=== PATIENT | male | born 1960 | race Caucasian/White ===

== ENCOUNTER → 2019-12-05 09:29 | Outpatient (BNVA) | payer BC, SELFPAY | PROVIDERS: Family Provider Family Medicine; PCP Family Medicine; Visit Provider Otolaryngology | DX: E04.1 Nontoxic single thyroid nodule (principal); E07.9 Disorder of thyroid, unspecified | CPT/HCPCS: 99213; 99214 ==

== ENCOUNTER → 2019-12-23 07:41 | Day surgery (SDC) | payer BC, SELFPAY ==
--- NOTE | 2019-12-23 08:30 | US_ITS ---
WS: [id number] Ultrasound-guided biopsy of left thyroid nodule, 12/23/2019 Clinical Data: THYROID NODULE Comparison: Thyroid ultrasound, 11/18/2019. Findings: The left thyroid nodule was identified. It is of mixed echogenicity. With the usual technique the ski n was cleansed and a 30-gauge needle was used to infiltrate approximately 2 mL of 1% lidocaine. Then 3 25-gauge needles were inserted into the interior of the left thyroid nodule and material was aspira og and given to the laboratory for analysis. There were no complications. US/US biopsy thyroid 62042 Impression: Satisfactory ultrasound-guided biopsy of left thyroid nodule.
== END ==
PROVIDERS: Family Provider Family Medicine; PCP Family Medicine
DX: E04.1 Nontoxic single thyroid nodule (principal); Z79.82 Long term (current) use of aspirin
CPT/HCPCS: 10005; 88173; 88305

== ENCOUNTER → 2019-12-31 09:57 | Outpatient (BNVA) | payer BC, SELFPAY | PROVIDERS: Family Provider Family Medicine; PCP Family Medicine; Visit Provider Otolaryngology | DX: E04.1 Nontoxic single thyroid nodule (principal); I10 Essential (primary) hypertension | CPT/HCPCS: 99214 ==

== ENCOUNTER 2020-01-08 08:46 | Day surgery (SDC) | payer BC, SELFPAY ==
[2020-01-07 12:39] VITALS: BMI 38.9
[2020-01-08] VITALS (16 sets, daily range): BP systolic 114–171; BP diastolic 71–92; PULSE 48–58; RESP 12–20; TEMP 36.1–36.4; O2SAT 94–99
[2020-01-08] MEDS: sodium chloride 0.9% 1,000 ML 30 ML IV (09:15)
--- NOTE | 2020-01-08 09:16 | PM.HPUD ---
H&P update H&P Update: DATE OF SURGERY/PROCEDURE: 01/08/20 DATE H&P PERFORMED: 12/31/19 H&P UPDATE INFORMATION: H&P completed within last 30 days and No changes to prior documentation PREOP DIAGNOSIS: Left thyroid nodule PLANNED PROCEDURE: Operation Date: 01/08/20 10:30 Proposed Procedures p Hemithyroidectomy Left Thyroid Lobectomy 00775 E04.1(Left) - Fam Cook MD Full H&P Medications/Allergies: Current Medications: Current Medications Generic Name Dose Route Start Last Admin Trade Name Freq PRN Reason Stop Dose Admin Sodium Chloride 1,000 mls @ 30 ml s/hr 01/08/20 09:00 01/08/20 09:15 Sodium Chloride 0.9% IV 01/09/20 08:59 30 mls/hr .Q24H JEREMIAS Administration Perinent History: Medical/Surgical History: Medical History (Updated 12/31/19 @ 11:56 by Fam Cook MD) Hypertension (Acute) Hypertension (Acute) Family History: Family History (Updated 12/04/19 @ 15:30 by Rika Rose LPN) Father Cancer Social History: Social History Smoking and tobacco status: never smoked Alcohol intake: current Alcohol intake frequency: holidays/special occasions only History of recent travel: No
--- NOTE | 2020-01-08 09:19 | P.ANESASSM_ITS ---
Pre-Anesthetic Assessment Pre-Anesthetic Assessment: Height/Weight: Height 1.85 m Weight 133.81 kg Temp Pulse Resp BP Pulse Ox 97.6 F 58 L 18 171/92 96 01/08/20 08:56 01/08/20 08:56 01/08/20 08:56 01/08/20 08:56 01/08/20 08:56 Preop Diagnosis: Left thyroid nodule Proposed Procedure: Operation Date: 01/08/20 10:30 Proposed Procedures p Hemithyroidectomy Left Thyroid Lobectomy 06798 E04.1(Left) - Fam Cook MD Last intake: Intake Last Liquid Date 01/08/20 Last Liquid Time 05:10 Last Solid Date 01/07/20 Last Solid Time 23:20 Exam: Pre-Anes Outpt Exam: alert, oriented x 3, clear to auscultation bilaterally and regular rate & rhythm CV/HEM: CV/HEM: Afib, Arrythmia and HTN Comments: ablation ' rx'd x 30y stress test negative GI: GI: GERD Comments: controlled with ranitidine Anesthetic Plan: ASA status: 3 Anesthesia: General Meds/Allergies Current Medications: Current Medications Generic Name Dose Route Start Last Admin Trade Name Freq PRN Reason Stop Dose Admin Sodium Chloride 1,000 mls @ 30 ml s/hr 01/08/20 09:00 01/08/20 09:15 Sodium Chloride 0.9% IV 01/09/20 08:59 30 mls/hr .Q24H JEREMIAS Administration PFSH Anesthesia PFSH: Medical History (Updated 12/31/19 @ 11:56 by Fam Cook MD) Hypertension Hypertension Social History Smoking and tobacco status: never smoked Alcohol intake: current Alcohol intake frequency: holidays/special occasions on ly History of recent travel: No Data Anesthesia Cardiac Studies: No Data to Display
[2020-01-08] MEDS: neomycin-poly-bacitracin oint 28 gm 1 APPLIC TOPICAL (10:05)
--- NOTE | 2020-01-08 10:56 | P.OP_ITS ---
Operative Report Date of procedure: January 08, 2020 Pre-op Diagnosis: Left thyroid nodule Post-op diagnosis: same Post-op Findings: Left thyroid nodule Procedure Done: Left thyroid lobectomy Specimens removed/disposition: Left thyroid lobectomy Surgeon: Fam Cook Anesthesia: General Complications: None Condition: stable Disposition: PACU Brief History: Duke is a 59-year-old male with a left thyroid mass. Fine- needle aspiration was concerning for's sampling area and after given the options informed consent was obtained to proceed with left thyroid lobectomy Procedure: The patient was taken to the operating room and under satisfactory general endotracheal anesthesia the neck was prepped draped and injected. A 1.5 cm incision was made in a relaxed skin tension line. Dissection was carried through the anterior layer of deep cervical fascia and the strap musculature was retracted laterally identifying the left thyroid lobe. Dissection was carried superiorly and inferiorly identifying the superior and inferior parathyroid. The middle thyroid vein and superior thyroid artery was ligated with the harmonic scalpel. The gland was then reflected into the wound and removed. Hemostasis was obtained with combination of harmonic and bipolar cautery. Karri was placed in the wound bed and the wound was closed in layered interrupted fashion with 5-0 subcuticular Vicryl and 4-0 chromic deep suture. Of note the recurrent laryngeal nerve was identified and preserved. Neck dressing was applied the patient was allowed to awaken and taken to recovery room where he was observed. During the observation time postoperative care instructions and counseling including detailed written and verbal instruction given to the patient and his . Once all parties verbalized understanding of all instructions and once the patient met discharge criteria he was discharged in satisfactory and stable condition.
[2020-01-08] MEDS: fentaNYL 50 mcg/mL INJ 2mL IVP ×2 (11:21→11:26)
[2020-01-08] MEDS: TRAMadol 50 mg Tablet PO (12:48)
== END 2020-01-08 13:30 | disposition home or self-care (01) ==
PROVIDERS: Family Provider Family Medicine; PCP Family Medicine; Visit Provider Otolaryngology
PROC: (CPT 60220; principal; 2020-01-08 09:50)
DX: E04.1 Nontoxic single thyroid nodule (principal); I48.91 Unspecified atrial fibrillation; I10 Essential (primary) hypertension; Z79.82 Long term (current) use of aspirin
CPT/HCPCS: 60220; 12345; 88307; J1100; J2001; J2405; J2704; J2710; J3010; J3490; J7030

== ENCOUNTER → 2020-01-09 11:29 | Outpatient (BNVA) | payer BC, SELFPAY | PROVIDERS: Family Provider Family Medicine; PCP Family Medicine; Visit Provider Otolaryngology | DX: Z48.89 Encounter for other specified surgical aftercare (principal) | CPT/HCPCS: 99024 ==

== ENCOUNTER → 2020-01-13 08:40 | Outpatient (BNVA) | payer BC, SELFPAY | PROVIDERS: Family Provider Family Medicine; PCP Family Medicine; Visit Provider Otolaryngology | DX: E04.1 Nontoxic single thyroid nodule (principal); B02.9 Zoster without complications; R05 Cough | CPT/HCPCS: 99024; 99214 ==

== ENCOUNTER → 2020-01-19 10:36 | Outpatient (BNVA) | payer BC, SELFPAY | PROVIDERS: Family Provider Family Medicine; PCP Family Medicine; Visit Provider Otolaryngology | DX: E04.1 Nontoxic single thyroid nodule (principal); B02.9 Zoster without complications; R05 Cough | CPT/HCPCS: 99024; 99214 ==

== ENCOUNTER → 2020-01-27 09:16 | Outpatient (BNVA) | payer BC, SELFPAY | PROVIDERS: Family Provider Family Medicine; PCP Family Medicine; Visit Provider Otolaryngology | DX: E04.1 Nontoxic single thyroid nodule (principal); B02.9 Zoster without complications; R05 Cough | CPT/HCPCS: 99024; 99214 ==

== ENCOUNTER → 2020-08-14 10:55 | Outpatient (BNVA) | payer BC, SELFPAY | PROVIDERS: Family Provider Family Medicine; PCP Family Medicine; Visit Provider Nurse Practitioner Family | DX: Z20.828 Contact with and (suspected) exposure to other viral communicable diseases (principal) | CPT/HCPCS: 87635 ==

== ENCOUNTER → 2020-11-23 15:27 | Outpatient (BNVA) | payer BC, SELFPAY | PROVIDERS: Family Provider Family Medicine; PCP Family Medicine; Visit Provider Urology | DX: R35.0 Frequency of micturition (principal); Z12.5 Encounter for screening for malignant neoplasm of prostate; R35.8 Other polyuria; Z80.42 Family history of malignant neoplasm of prostate | CPT/HCPCS: 81003; G0103 ==

== ENCOUNTER → 2021-11-22 16:08 | Outpatient (BNVA) | payer BC, SELFPAY | PROVIDERS: Family Provider Family Medicine; PCP Family Medicine; Visit Provider Urology | DX: R35.89 Other polyuria (principal); Z12.5 Encounter for screening for malignant neoplasm of prostate | CPT/HCPCS: 81003; G0103 ==

== ENCOUNTER 2022-01-02 15:45 | Outpatient (CLI) | payer BC, SELFPAY ==
--- NOTE | 2022-01-02 15:51 | XR_ITS ---
WS: [id number] XR foot LT 2V [id number] REASON FOR EXAM: FOOT PAIN LEFT, PLANTAR FASCITIS FINDINGS: No fracture or focal bone lesion. Within the left forefoot there is mild joint space narrowing with subchondral sclerosis and small mar ginal osteophytes in the DIP and PIP joints of the third through the fifth toes. Mild valgus deformity at the first metacarpal phalangeal joint. Joint spaces and bony structure of the midfoot unremarkable. Normal subtalar joint. Small/moderate anterior plantar enthesophyte from the calcaneus. XR/XR foot LT 2V IMPRESSION: Mild osteoarthritis of the left foot. Calcaneal enthesophyte as above.
== END 2022-01-02 15:46 | disposition home or self-care (01) ==
LOC: RAD 15:49
PROVIDERS: PCP Family Medicine; Visit Provider Family Medicine
DX: M72.2 Plantar fascial fibromatosis (principal); M19.072 Primary osteoarthritis, left ankle and foot; M25.775 Osteophyte, left foot
CPT/HCPCS: 73620

== ENCOUNTER 2022-04-28 00:25 | Emergency (ER) | payer BC, SELFPAY ==
[2022-04-28] VITALS (9 sets, daily range): BP systolic 145–192; BP diastolic 80–100; PULSE 50–90; RESP 14–26; TEMP 36.7; O2SAT 90–97; BMI 38.9
--- NOTE | 2022-04-28 00:48 | CTR_ITS ---
PROCEDURE INFORMATION: Exam: CT Abdomen And Pelvis Without Contrast Exam date and time: 04/28/2022 1:25 AM Age: 61 years old Clinical indication: Abdominal pain; Prior surgery; Surgery type: Gb; Patient HX: C/O left flank/llq and left testicle pain. ; Additional info: Left flank and testicle pain TECHNIQUE: Imaging protocol: Computed tomography of the abdomen and pelvis without contrast. Radiation optimization: All CT scans at this facility use at least one of these dose optimization techniques: automated exposure control; mA and/or kV adjustment per patient size (includes targeted exams where dose is matched to clinical indication); or iterative reconstruction. COMPARISON: US gall bladder [id number] 10/23/2019 7:27 PM RADIATION DOSE METRICS: Total DLP (mGy-cm): 1650.07 FINDINGS: Heart: Severe calcified coronary artery disease. Liver: Calcified hepatic granulomas. Gallbladder and bile ducts: Surgical clips in the gallbladder fossa consistent with cholecystectomy. Pancreas: Normal. No ductal dilation. Spleen: Calcified splenic granulomas. One or more accessory splenules. Adrenal glands: Normal. No mass. Kidneys and ureters: One or more nonobstructing left renal calyceal stones. 4 mm left ureteral stone at the level of L4 with minimal hydronephrosis. Stomach and bowel: Moderate descending and/or sigmoid colon diverticulosis without diverticulitis. Appendix: Normal appendix. Intraperitoneal space: Unremarkable. No free air. No significant fluid collection. Vasculature: Unremarkable. No abdominal aortic aneurysm. Lymph nodes: Unremarkable. No enlarged lymph nodes. Urinary bladder: Unremarkable as visualized. Reproductive: Nonspecific prostate calcifications. Bones/joints: Unremarkable. No acute fracture. Soft tissues: Unremarkable. CT/CT kidney stone [id number] IMPRESSION: 1. Severe calcified coronary artery disease. 2. 4 mm left ureteral stone at the level of L4 with minimal hydronephrosis.
--- NOTE | 2022-04-28 00:51 | W.ED.MALEGU ---
HPI - Male Genitourinary General: Chief complaint: Urogenital-Male Stated complaint: L testicle pain, goes to back Time Seen by Provider: 04/28/22 00:48 History of Present Illness: 61-year-old male patient comes in with left testicle pain radiating up into the flank. Patient reports he thought at first he had strained his groin after pulling a calf. Patient has a history of kidney stones. Patient appears in moderate pain. Patient is very restless and moving which does not seem to exacerbate pain. Associated symptoms: Reports nausea; Deny vomiting Review of Systems General: Reports: 10 or more systems reviewed and unremarkable except in HPI and below Const: Denies: fever(s) Card: Denies: chest pain Resp: Denies: dyspnea GI: Reports: abdominal pain and nausea; Denies: vomiting : Reports: flank pain, urinary frequency and urinary urgency PFSH ED PFSH: Medical History Cough FH: prostate cancer Hypertension Hypertension Shingles Urinary frequency Surgical History History of thyroid surgery Family History Father , at age 74 Cancer prostate with metastasis Mother Multiple myeloma Social History Smoking and tobacco status: never smoked Alcohol intake: current Alcohol intake frequency: holidays/special occasions only Marital status: Current occupational status: employed History of recent travel: No Physical Exam Const: COMMON NORMALS: alert HENMT: COMMON NORMALS: normocephalic HEAD & SCALP: normocephalic Neck/C-Spine: COMMON NORMALS: full ROM Resp: COMMON NORMALS: normal respiratory effort and clear to auscultation bilaterally AUSCULTATION: clear to auscultation bilaterally Cardio: COMMON NORMALS: regular rate and regular rhythm RATE: regular rate RHYTHM: regular rhythm : BLADDER/KIDNEY EXAM: Yes CVA tenderness on the left PENIS: normal penis, circumcised and not erythematous SCROTUM: Yes testes descended bilaterally, No erythematous and No edematous Back/Pelvis: GENERAL BACK: Yes CVA tenderness Neuro: SENSORIUM/ORIENTATION: Yes alert Skin: COMMON NORMALS: no rashes or lesions noted GENERAL SKIN EXAM: no rashes or lesions noted Course Vital Signs: Vital signs: Vital Signs Temperature 98.1 F 04/28/22 00:36 Pulse Rate 51 L 04/28/22 02:23 Respiratory Rate 14 04/28/22 02:23 Blood Pressure 145/94 04/28/22 02:23 Pulse Oximetry 91 04/28/22 02:23 MDM - Male Medical Decision Making Patient comes in with left testicular pain radiating up into the left groin. On exam patient is very restless and appears in moderate pain. Abdomen soft with some tenderness in the left quadrant. Bowel sounds are present. Skin is warm and dry. No obvious erythema or abnormal swelling is to the groin. Differential diagnosis includes but not limited to incarcerated inguinal hernia, UTI, renal calculi. CT of the abdomen pelvis noted a 4 mm mid ureter stone with minimal hydronephrosis and no stranding. CBC had a white count of 9000, CMP had a creatinine of 1.4 which appears to be near patient's baseline of 1.2. Patient was brought into comfort with the 50 mg of Toradol, 50 mg of fentanyl, and 4 mg of ondansetron. Discussed with pain treatment and recommendations for follow-up with Dr. Rosenberg. Patient reported understanding and agreed to plan. Lab Data : 04/28/22 01:11 04/28/22 01:11 Radiology Impressions Abdomen/Pelvis CT 04/28/22 00:48 IMPRESSION: 1. Severe calcified coronary artery disease. 2. 4 mm left ureteral stone at the level of L4 with minimal hydronephrosis. Laboratory Results WBC 9.0 10^3/uL (4.0-10.0) 04/28/22 01:11 RBC 5.76 10^6/uL (4.1-5.3) H 04/28/22 01:11 Hgb 17.1 g/dL (11.7-16.6) H 04/28/22 01:11 Hct 50.6 % (42.0-52.0) 04/28/22 01:11 MCV 87.8 fl (80-94) 04/28/22 01:11 MCH 29.7 pg (28.0-34.0) 04/28/22 01:11 MCHC 33.8 g/dL (30.0-36.0) 04/28/22 01:11 RDW 13.7 % (12.1-15.1) 04/28/22 01:11 Plt Count 212 10^3/cmm (130-400) 04/28/22 01:11 MPV 11.1 fL (7.4-10.4) H 04/28/22 01:11 Neut % (Auto) 45.4 % 04/28/22 01:11 Lymph % (Auto) 44.0 % 04/28/22 01:11 [place] % (Auto) 7.9 % 04/28/22 01:11 Eos % (Auto) 1.8 % 04/28/22 01:11 Baso % (Auto) 0.6 % 04/28/22 01:11 Neut # (Auto) 4.07 10^3/uL (1.8-7.7) 04/28/22 01:11 Lymph # (Auto) 3.9 10^3/uL (0.8-4.8) 04/28/22 01:11 [place] # (Auto) 0.7 10^3/uL (0.2-0.9) 04/28/22 01:11 Eos # (Auto) 0.2 10^3/uL (0.0-0.8) 04/28/22 01:11 Baso # (Auto) 0.1 10^3/uL (0.0-0.1) 04/28/22 01:11 Nucleated RBC % (auto) 0 % 04/28/22 01:11 Nucleated RBCs # 0.0 /100WBC 04/28/22 01:11 Sodium 139 mmol/L (136-145) 04/28/22 01:11 Potassium 4.1 mmol/L (3.5-5.1) 04/28/22 01:11 Chloride 104 mmol/L (98-107) 04/28/22 01:11 Carbon Dioxide 23 mmol/L (22-29) 04/28/22 01:11 Anion Gap 16.1 (5-19) 04/28/22 01:11 BUN 25 mg/dL (8-23) H 04/28/22 01:11 Creatinine 1.4 mg/dL (0.7-1.2) H 04/28/22 01:11 GFR Calculation 51.5 mL/min (90-130) L 04/28/22 01:11 Glucose 127 mg/dL (65-115) H 04/28/22 01:11 Calculated Osmolality 294 mOsm/kg (285-295) 04/28/22 01:11 Calcium 9.2 mg/dL (8.5-10.5) 04/28/22 01:11 Total Bilirubin 0.4 mg/dL (0.15-1.2) 04/28/22 01:11 AST 26 U/L (0-40) 04/28/22 01:11 ALT 45 U/L (0-41) H 04/28/22 01:11 Alkaline Phosphatase 81 IU/L (40-130) 04/28/22 01:11 Total Protein 7.0 g/dL (6.6-8.7) 04/28/22 01:11 Albumin 4.4 g/dL (3.5-5.2) 04/28/22 01:11 Globulin 2.6 g/dL (1.3-4.6) 04/28/22 01:11 Lipase 30 U/L (13-60) 04/28/22 01:11 Discharge Plan Discharge Patient Disposition: Home Clinical Impression: Left ureteral calculus Condition: Stable Prescriptions: New hydrocodone-acetaminophen 5-325 mg tablet 1 tab PO Q6H PRN (Reason: pain (scale score 7-10)) Qty: 20 0RF tamsulosin 0.4 mg capsule 0.4 mg PO DAILY Qty: 14 0RF ondansetron 4 mg tablet,disintegrating 4 mg PO Q8H PRN (Reason: nausea and vomiting) Qty: 10 0RF No Action atenolol 25 mg tablet 25 mg PO Q24H 0RF flecainide 50 mg tablet 50 mg PO Q12H 0RF losartan 50 mg tablet 50 mg PO DAILY 0RF aspirin 81 mg tablet,delayed release (DR/EC) 81 mg PO DAILY 0RF potassium chloride [Klor-Con M20] 20 mEq tablet,ER particles/crystals 20 meq PO DAILY 0RF Discharge Orders: Discharge ED (Routine); Ordered 04/28/22 Ordered By: Roberto Bond Referrals: Gareth Shaikh MD [Primary Care Provider] - Discharge Diet: Usual diet Discharge Activity: Increase activity as tolerated Patient Instructions: Kidney Stones (ED), How to Strain Your Urine (ED), Opioid Safety Activity Restrictions/Additional Instructions: Strain all urine. Continue with routine medications. You may use acetaminophen or ibuprofen for pain. Use hydrocodone for severe pain. Use ondansetron as needed for nausea or vomiting. Use tamsulosin to help dilate the ureter to pass the stone. Case management will help with follow-up appointment for urology for further evaluation and treatment. Return to the ER for uncontrolled pain, high fever, or new concerns. Coding Level of Care Code ED Development Coordinator for Lilianag Fwd Exam Detailed
[2022-04-28] MEDS: ondansetron 2 mg/ML SDV 2 mL 4 MG IVP (01:07)
[2022-04-28] MEDS: ketorolac 30 mg/mL INJ 15 MG IVP (01:07)
[2022-04-28] MEDS: fentaNYL 50 mcg/mL INJ 2mL IVP (01:08)
[2022-04-28 01:28] LABS: Basophils # 0.1 10^3/uL (0.0-0.1); Basophils % 0.6 %; Eosinophils # 0.2 10^3/uL (0.0-0.8); Eosinophils % 1.8 %; Hematocrit 50.6 % (42.0-52.0); Hemoglobin 17.1 g/dL (11.7-16.6); Lymphocytes # 3.9 10^3/uL (0.8-4.8); Mean Corpuscular HGB Conc 33.8 g/dL (30.0-36.0); Mean Corpuscular Hemoglobin 29.7 pg (28.0-34.0); Mean Corpuscular Volume 87.8 fl (80-94); Mean Platelet Volume 11.1 fL (7.4-10.4); Monocytes # 0.7 10^3/uL (0.2-0.9); Monocytes % 7.9 %; Neutrophils # 4.07 10^3/uL (1.8-7.7); Neutrophils % 45.4 %; Nucleated Red Blood Cells % 0 %; Platelet Count 212 10^3/cmm (130-400); Red Blood Count 5.76 10^6/uL (4.1-5.3); Red Cell Distribution Width 13.7 % (12.1-15.1)
[2022-04-28 01:51] LABS: Alanine Aminotransferase 45 U/L (0-41); Albumin Level 4.4 g/dL (3.5-5.2); Alkaline Phosphatase 81 IU/L (40-130); Aspartate Amino Transferase 26 U/L (0-40); Blood Urea Nitrogen 25 mg/dL (8-23); Calcium 9.2 mg/dL (8.5-10.5); Carbon Dioxide 23 mmol/L (22-29); Chloride 104 mmol/L (98-107); Globulin 2.6 g/dL (1.3-4.6); Glomerular Filtration Rate 51.5 mL/min (90-130); Glucose 127 mg/dL (65-115); Lipase 30 U/L (13-60); Osmolality Calculated 294 mOsm/kg (285-295); Sodium 139 mmol/L (136-145); Total Bilirubin 0.4 mg/dL (0.15-1.2)
[2022-04-28 01:57] LABS: Anion Gap 16.1 (5-19); Potassium 4.1 mmol/L (3.5-5.1)
--- NOTE | 2022-04-28 04:00 | PC.NURSE ---
Patient sent home with #2 tabs of norco per provider. Witnessed by Leticia Paul rn.
--- NOTE | 2022-04-28 08:40 | DCPLANNER ---
Addendum entered by Melisa Nixon 05/03/22 14:44: Patient had a follow up appointment for patient with Dr. Rosenberg on 05.01.22 - patient did attend appointment. Original Note: tax compliance manager had message to schedule a follow up appointment for patient with urology. tax compliance manager sent patients information to the front office staff at urology. Patients information will be printed and reviewed. Clinic will call patient with appointment information.
== END 2022-04-28 03:55 | disposition home or self-care (01) ==
PROVIDERS: Emergency Provider Nurse Practitioner Family; PCP Family Medicine
DX: N20.1 Calculus of ureter (principal); Z87.442 Personal history of urinary calculi; Z85.46 Personal history of malignant neoplasm of prostate
CPT/HCPCS: 74176; 80053; 83690; 85025; 96374; 96375; 96376; 99284; J1885; J2405; J3010

== ENCOUNTER 2022-05-01 13:18 | Observation (INO) | payer BC, SELFPAY ==
--- NOTE | 2022-05-01 11:15 | XRR_ITS ---
PROCEDURE INFORMATION: Exam: XR Abdomen Exam date and time: 05/01/2022 11:27 AM Age: 61 years old Clinical indication: Condition or disease; Kidney or ureter condition; Calculus (stone) in kidney; Prior surgery; Surgery type: Gb; Additional info: Kidney stone, kub @ ozh 05/01/22 @ 1100 appointment to follow TECHNIQUE: Imaging protocol: XR of the abdomen. Views: Frontal supine view of the abdomen. 1 View. COMPARISON: CT Abdomen/Pelvis Renal [id number] 04/29/2022 7:50 PM FINDINGS: Gastrointestinal tract: No abnormally dilated air-filled bowel loops identified. Intraperitoneal space: Surgical clips in the right upper quadrant noted. Organs: Multiple irregular calcifications in the left upper quadrant within the spleen as noted on prior CT. Multiple calcified granulomas noted in the liver. 5 mm calcification noted overlying the expected location of the upper pole the left kidney corresponding to previously noted nephrolithiasis. Previously CT noted left-sided ureteral stone not well visualized. Bones/joints: Unremarkable. XR/XR KUB [id number] IMPRESSION: 1. 5 mm calcification noted overlying the expected location of the upper pole the left kidney corresponding to previously noted nephrolithiasis. 2. Previously CT noted left-sided ureteral stone not well visualized.
[2022-05-01 13:25] VITALS: BMI 38.9
[2022-05-01 13:52] VITALS: BP 177/77; PULSE 58; RESP 18; TEMP 36.3; O2SAT 96
[2022-05-01] MEDS: ketorolac 30 mg/mL INJ 15 MG IVP (14:15)
[2022-05-01] MEDS: D5-NS 0.45% + KCL 20 mEq 20 MEQ/1,000 ML BAG 150 MEQ IV ×2 (14:30→20:27)
[2022-05-01 15:09] LABS: Basophils % 0.3 %; Eosinophils # 0.1 10^3/uL (0.0-0.8); Eosinophils % 1.1 %; Hematocrit 47.2 % (42.0-52.0); Hemoglobin 15.3 g/dL (11.7-16.6); Lymphocytes # 1.6 10^3/uL (0.8-4.8); Lymphocytes % 25.4 %; Mean Corpuscular HGB Conc 32.4 g/dL (30.0-36.0); Mean Corpuscular Hemoglobin 29.5 pg (28.0-34.0); Mean Corpuscular Volume 91.1 fl (80-94); Mean Platelet Volume 11.3 fL (7.4-10.4); Monocytes # 0.6 10^3/uL (0.2-0.9); Monocytes % 9.4 %; Neutrophils # 3.96 10^3/uL (1.8-7.7); Neutrophils % 63.5 %; Nucleated Red Blood Cells % 0 %; Platelet Count 147 10^3/cmm (130-400); Red Blood Count 5.18 10^6/uL (4.1-5.3); Red Cell Distribution Width 13.2 % (12.1-15.1); White Blood Count 6.3 10^3/uL (4.0-10.0)
[2022-05-01 15:41] LABS: Alanine Aminotransferase 33 U/L (0-41); Albumin Level 3.8 g/dL (3.5-5.2); Alkaline Phosphatase 74 IU/L (40-130); Anion Gap 15.2 (5-19); Aspartate Amino Transferase 22 U/L (0-40); Blood Urea Nitrogen 30 mg/dL (8-23); Calcium 9.3 mg/dL (8.5-10.5); Carbon Dioxide 25 mmol/L (22-29); Chloride 102 mmol/L (98-107); Globulin 3.1 g/dL (1.3-4.6); Glomerular Filtration Rate 36.2 mL/min (90-130); Glucose 111 mg/dL (65-115); Osmolality Calculated 293 mOsm/kg (285-295); Potassium 4.2 mmol/L (3.5-5.1); Sodium 138 mmol/L (136-145); Total Bilirubin 1.1 mg/dL (0.15-1.2); Total Protein 6.9 g/dL (6.6-8.7)
[2022-05-01 16:00] VITALS: BP 166/91; PULSE 57; RESP 16; TEMP 36.6; O2SAT 94
[2022-05-01] MEDS: docusate sodium 100 mg Capsule PO (17:00)
--- NOTE | 2022-05-01 18:53 | P.MISC_ITS ---
Miscellaneous Note Purpose of Documentation: Update Note: Admitted through the clinic today for refractory left renal colic secondary to left mid ureteral stone. Since admission he has been aggressively managed with parenteral medication with significant improvement in baseline symptoms. Has not passed the stone. No fever or chills. Creatinine was improved at 1.9 down from 2.0 on 04/29/2022. Will plan for KUB in the morning, clear liquids tonight, serial BMPs, co nsideration for surgical intervention tomorrow as time available if no stone passage.
[2022-05-01 20:00] VITALS: BP 166/96; PULSE 50; RESP 17; TEMP 35.9; O2SAT 95
[2022-05-02] VITALS (17 sets, daily range): BP systolic 118–168; BP diastolic 70–99; PULSE 16–57; RESP 12–20; TEMP 36.2–36.7; O2SAT 92–98
--- NOTE | 2022-05-02 | SCC_ITS ---
Procedure done: 1. Cystoscopy, left retrograde ureteropyelogram 2. Left ureteroscopy, laser, stent (7 [place] by 30 cm double-pigtail without string) 62.3 seconds of fluoroscopic guidance, for a cumulative dose of 27.91 mGy, was provided to Dr. Rosenberg by the radiology department. C-arm images of the abdomen were saved for the patient's permanent record. [facility]
[2022-05-02] MEDS: ketorolac 30 mg/mL INJ 15 MG IVP ×3 (01:02→14:35)
[2022-05-02] MEDS: D5-NS 0.45% + KCL 20 mEq 20 MEQ/1,000 ML BAG 150 MEQ IV ×3 (03:09→20:36)
[2022-05-02] MEDS: HYDROmorphone 1 mg/mL INJ 1 mL 0.5 MG IVP (03:10)
--- NOTE | 2022-05-02 06:00 | XRR_ITS ---
PROCEDURE INFORMATION: Exam: XR Abdomen Exam date and time: 05/02/2022 6:13 AM Age: 62 years old Clinical indication: Other: Ureteral calculus; Additional info: Left ureteral calculus TECHNIQUE: Imaging protocol: XR of the abdomen. Views: Frontal supine view of the abdomen. 1 View. COMPARISON: 1. CR XR KUB [id number] 05/01/2022 11:[address] Abdomen/Pelvis Renal [id number] 04/29/2022 7:50 PM FINDINGS: Gastrointestinal tract: No abnormally dilated air-filled bowel loops identified in the field of view. Intraperitoneal space: 5 mm calcification noted in the right upper abdomen possibly a overlying the expected region of the right kidney. No additional radiographically evident ureteral stones identified. Previously CT noted left-sided renal and ureteral stones not radiographically evident. Bones/joints: Unremarkable. XR/XR KUB [id number] IMPRESSION: 1. Previously noted left-sided renal and ureteral stones not radiographically evident. 2. Renal stone identified.
[2022-05-02 06:37] LABS: Anion Gap 14.1 (5-19); Blood Urea Nitrogen 24 mg/dL (8-23); Carbon Dioxide 25 mmol/L (22-29); Chloride 102 mmol/L (98-107); Glucose 112 mg/dL (65-115); Osmolality Calculated 289 mOsm/kg (285-295); Potassium 4.1 mmol/L (3.5-5.1); Sodium 137 mmol/L (136-145)
--- NOTE | 2022-05-02 07:15 | PC.NURSE ---
Bedside report received from Anastasiya RUDOLPH at this time.
--- NOTE | 2022-05-02 07:51 | PM.PN ---
Subjective Subjective: Hospital day #2. Still with intermittent severe left ureteral colic. Has failed to pass the stone. Still controlling his pain with appropriate doses of narcotics and Toradol. Creatinine has improved down to 1.4. No systemic infection type symptoms. Reviewed options which would include continued inpatient or outpatient conservative management versus intervention based on the refractory nature of his symptoms he is chosen the latter. We will plan on endoscopic treatment of the stone. Informed consent was obtained for cystoscopy, LEFT: Retrograde, ureteroscopy, laser, stent after detailed explanation of the procedure, benefits, risks, alternative, possible staging with stent placement first and delayed rescope if poor access. Also reviewed the rare chance of inability to access in a retrograde fashion at all with requirement for interventional radiology and percutaneous nephrostomy tube and possible antegrade stent placement. All of this was explained and he asked appropriate questions and seemed content with my answers. Plan for procedure this evening when time available. Cannot clearly identify the stone on today's KUB Decision for surgery today. Medications: Reviewed: Yes Vitals/I&O/Wt Last Vital Signs Temp 97.9 F 05/02/22 04:00 Pulse 51 L 05/02/22 04:00 Resp 16 05/02/22 04:00 BP 162/93 05/02/22 04:00 Pulse Ox 94 05/02/22 04:00 05/01/22 05/02/22 05/02/22 22:59 06:59 14:59 Intake Total 892.5 / 892.5 1000 / 1892.5 Output Total 250 / 250 500 / 750 Balance 642.5 / 642.5 500 / 1142.5 Weight last 48 hrs Weight 295 lb Physical Exam Narrative: Alert oriented still looks uncomfortable. HEENT atraumatic normocephalic Neck good range of motion Respiratory no labored respiration no audible wheezes Abdomen nondistended. starch mangle tender Extremities good range of motion Psychiatric with normal mentation good cognitive function. Neurologic no focal defects. No confusion. No memory loss. Hematologic lymphatic no abnormal bruising or bleeding. Data : 05/01/22 14:40 05/02/22 05:50 A&P Assessment and plan (1) Left ureteral calculus: Status: Acute (2) Renal colic on left side: Status: Acute (3) Hypertension: Status: Acute Attestations Medical Necessity Statement*: Requires intervention today for refractory renal colicky symptoms related to left mid ureteral stone. Coding Level of Care Code Acute Treasury Specialist for Chg Fwd Diagnoses Left ureteral calculus N20.1 Renal colic on left side N23 Hypertension I10
--- NOTE | 2022-05-02 08:15 | ECG_ITS ---
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 Measurements Intervals [place] Rate: 57 P: 22 ME: 191 QRS: -16 QRSD: 96 T: 5 QT: 392 QTc: 382 Interpretive Statements SINUS BRADYCARDIA Compared to ECG 10/23/2019 20:13:15 No significant changes Electronically Signed On 05-02-2022 17:59:17 CDT by Avelino Harmon M.D. [email or web address] city of [place]-the [email or web address] citizens hospitalDarma [id number]
[2022-05-02] MEDS: HYDROcodone-acetaminophen 5-325 mg Tablet 1 TAB PO ×3 (09:15→21:39)
[2022-05-02] MEDS: cyclobenzaprine 10 mg Tablet PO ×2 (09:15→14:32)
[2022-05-02] MEDS: tamsulosin 0.4 mg Capsule PO (09:16)
[2022-05-02] MEDS: losartan 50 mg Tablet PO (09:16)
[2022-05-02] MEDS: potassium chloride ER 20 mEq Tablet PO (09:16)
[2022-05-02] MEDS: aspirin 81 mg EC Tablet PO (09:16)
[2022-05-02] MEDS: atenolol 50 mg Tablet 25 MG PO (09:16)
[2022-05-02] MEDS: flecainide 100 mg Tablet 50 MG PO ×2 (09:17→21:47)
[2022-05-02] MEDS: docusate sodium 100 mg Capsule PO (09:17)
--- NOTE | 2022-05-02 10:43 | PC.CHAP ---
Pastoral Care Encounter/Spiritual Assessment Type of Contact [] Declined lockstitch machine operator visit [] Patient/Family/Request visit [] Outpatient visit [] Follow-up visit [] Physician referral [] Code/Alert x[x] Routine visit [] Staff referral [] Actively dying [] Patient sleeping [] Family support [] [] Out of room [] Palliative care [] [] Receiving care in room [] Pre-surgical visit [] Trauma [] Long length of stay [] ICU visit [] Other: Relational/Emotional Strength [x] Patient feels connected with others/family/visitors/staff [] Distress [] Loneliness/isolation [] Abandonment Spirituality of Patient []x Person of [place] [x] Attends Baptism of their [place] [x] Believes in Prayer [] Reads Bible or Judaism materials [] There are Spiritual issues to be addressed Day Habilitation Supervisor Interventions x [x] Prayer [] Active listening x[x] Non-anxious presence [] Spiritual/emotional support [] Crisis/trauma care [] Spiritual counseling [] Bereavement support [] Provided bereavement packet [] Provided Bible/devotional materials [] Provided toy/stuffed animal, coloring book to patient or family member [] Provided Communion [] Anointing/[place] [] Salvation [x] Completed spiritual assessment [] Other: Impact on Illness or Injury [] Angry [] Fearful [] Anxious [] Often cries [] Exhaustion [] Unable to work [] Unable to attend nondenominational [] Unable to walk/stand [] Unable to read [] Unable to drive [] Unable to eat/drink [] Unable to sleep [] Unable to be with family [] Patient intubated [] Other: Summary Time spent with patient 10min
--- NOTE | 2022-05-02 13:30 | P.ANESASSM_ITS ---
Pre-Anesthetic Assessment Height/Weight: Height 1.85 m Weight 133.81 kg Temp Pulse Resp BP Pulse Ox 98.1 F 16 L 16 149/92 95 05/02/22 11:53 05/02/22 11:53 05/02/22 11:53 05/02/22 11:53 05/02/22 11:53 Preop Diagnosis: Ureteral stone Operation Date: 05/02/22 16:30 Proposed Procedures p Cystoscopy(Not Applicable) - Lg Rosenberg MD s Retrograde Pyelogram(Left) - Lg Rosenberg MD s Laser Lithotripsy(Left) - Lg Rosenberg MD s Ureteral Stent Placement(Left) - Lg Rosenberg MD Familial anesthetic complications: none Was Beta Radha taken within 24 hours: Yes Was Clonidine taken within 24 hours: N/A Airway Submandibular: within normal limits Cervical ROM: within normal limits Mallampati: Class III Dentition: full Pulmonary None reported CV/HEM Atrial Fibrillation and Hypertension METS > 4 Ureteral stone Prostate cancer hx Polyuria Hepatic None reported GI Gastroesophageal Reflux Disease Metabolic Thyroid Disease (s/p thyroid resection for benign tissue ) Musc/skel Plantar fasciitis Anesthetic Plan ASA status: 3 Anesthesia: Anesthesia Evaluation and General Other: We discussed risk and benefits of general anesthesia including PONV, sore throat (sometimes severe), corneal abrasion, positioning and peripheral nerve injuries, life threatening allergic reaction, post operative ICU admission requiring prolonged intubation, stroke, heart attack, , and rare incidences of recall. Patient consents to proceed with general anesthesia. Risk of > 500 ml blood loss (7ml/kg in children): No Medications/Allergies Home Medications Medication Instructions Recorded Confirmed Last Taken Type aspirin 81 mg tablet,delayed 81 mg PO QAM tab 12/04/19 05/02/22 12/30/19 History release atenolol 25 mg tablet 12.5 mg PO QPM tab 12/04/19 05/02/22 01/07/20 18:00 History flecainide 50 mg tablet 50 mg PO Q12H 12/04/19 05/02/22 01/07/20 05:30 History potassium chloride 20 mEq 20 meq PO QAM tab 12/04/19 05/02/22 01/07/20 05:30 History tablet,extended release(part/cryst) (Klor-Con M) ondansetron 4 mg disintegrating 4 mg PO Q8H PRN #10 tab 04/28/22 05/02/22 Unknown Rx tablet tamsulosin 0.4 mg capsule 0.4 mg PO DAILY #14 cap 04/28/22 05/02/22 Unknown Rx docusate sodium 100 mg capsule 200 mg PO BID 05/01/22 05/02/22 Unknown History (Colace) oxycodone-acetaminophen 10 mg-325 1 - 2 tab PO Q8H PRN 05/01/22 05/02/22 Unknown History mg tablet losartan 100 mg tablet 100 mg PO QAM 05/02/22 05/02/22 Unknown History Allergies Allergy/AdvReac Type Severity Reaction Status Date / Time propafenone [From Rythmol] Allergy Severe ALGY-Difficulty Verified 05/02/22 10:5 8 Breathing Opioids - Morphine Analogues AdvReac Intermediate ADV-Weaknes Verified 05/02/22 10:58 s Current Medications Generic Name Dose Route Start Last Admin Trade Name Freq PRN Reason Stop Dose Admin Hydrocodone Bitart/Acetaminophen 1 tab 05/01/22 13:52 05/02/22 09:15 Hydrocodone-Acetaminophen 5-325 Mg Tablet PO 1 tab Q1H PRN Administration MODERATE TO SEVERE PAIN Aspirin 81 mg 05/02/22 09:00 05/02/22 09:16 Aspirin 81 Mg Ec Tablet PO 81 mg DAILY JEREMIAS Administration Atenolol 25 mg 05/02/22 09:00 05/02/22 09:16 Atenolol 50 Mg Tablet PO 25 mg DAILY JEREMIAS Administration Cyclobenzaprine HCl 10 mg 05/01/22 13:52 05/02/22 09:15 Cyclobenzaprine 10 Mg Tablet PO 10 mg TID PRN Administration MUSCLE SPASMS Docusate Sodium 100 mg 05/01/22 18:00 05/02/22 09:17 Docusate Sodium 100 Mg Capsule PO 100 mg BID JEREMIAS Administration Flecainide Acetate 50 mg 05/02/22 09:00 05/02/22 09:17 Flecainide 100 Mg Tablet PO 50 mg Q12H JEREMIAS Administration Potassium Chloride/Dextrose/Sod Cl 20 meq in 1,000 mls @ 150 mls/hr 05/01/22 14:00 05/02/22 09:21 D5-Ns 0.45% + Kcl 20 Meq IV 150 mls/hr .Q6H40M JEREMIAS Administration Ketorolac Tromethamine 15 mg 05/01/22 13:52 05/02/22 09:22 Ketorolac 30 Mg/Ml Inj IVP 05/06/22 13:51 15 mg Q6H PRN Administration MODERATE PAIN Losartan Potassium 50 mg 05/02/22 09:00 05/02/22 09:16 Losartan 50 Mg Tablet PO 50 mg DAILY JEREMIAS Administration Potassium Chloride 20 meq 05/02/22 09:00 05/02/22 09:16 Potassium Chloride Er 20 Meq Tablet PO 20 meq DAILY JEREMIAS Administration Tamsulosin HCl 0.4 mg 05/02/22 09:00 05/02/22 09:16 Tamsulosin 0.4 Mg Capsule PO 0.4 mg DAILY JEREMIAS Administration PFSH Anesthesia Medical History A-fib Cough FH: prostate cancer GERD (gastroesophageal reflux disease) Hypertension Hypertension Shingles Testicular pain Urinary frequency Surgical History History of cholecystectomy History of thyroid surgery Hx laparoscopic cholecystectomy Family History Father , at age 74 Cancer prostate with metastasis Mother Multiple myeloma Social History Smoking and tobacco status: never smoked Alcohol intake: current Alcohol intake frequency: holidays/special occasions only Marital status: Current occupational status: employed History of recent travel: No Data Anesthesia : 05/01/22 14:40 05/02/22 05:50 Short CBC 05/01/22 Range/Units 14:40 WBC 6.3 (4.0-10.0) 10^3/uL Hgb 15.3 (11.7-16.6) g/dL Hct 47.2 (42.0-52.0) % MCV 91.1 (80-94) fl Plt Count 147 (130-400) 10^3/cmm Neut % (Auto) 63.5 % Neut # (Auto) 3.96 (1.8-7.7) 10^3/uL BMP 05/01/22 05/02/22 05/02/22 14:40 02:21 05:50 Sodium 138 Cancelled 137 Potassium 4.2 Cancelled 4.1 Chloride 102 Cancelled 102 Carbon Dioxide 25 Cancelled 25 BUN 30 H Cancelled 24 H Creatinine 1.9 H Cancelled 1.6 H Glucose 111 Cancelled 112 Calcium 9.3 Cancelled 9.0 Liver Function 05/01/22 Range/Units 14:40 Total Bilirubin 1.1 (0.15-1.2) mg/dL AST 22 (0-40) U/L ALT 33 (0-41) U/L Alkaline Phosphatase 74 (40-130) IU/L Albumin 3.8 (3.5-5.2) g/dL Cardiac Studies: No Data to Display
[2022-05-02] MEDS: sodium chloride 0.9% 1,000 ML 30 ML IV (16:01)
--- NOTE | 2022-05-02 16:12 | PC.NURSE ---
Patient went to surgery at this time.
--- NOTE | 2022-05-02 16:30 | SC_ITS ---
WS: [id number] INTRAOPERATIVE TECHNIQUE: 9 Spot fluoroscopic images for intraoperative purposes. FLUOROSCOPY TIME: 62.3 seconds CLINICAL INFORMATION: Left ureteroscopy COMPARISON: None. FINDINGS: LEFT distal ureteroscopy with stent deployment. SC/C-arm FL for Urology IMPRESSION: Images obtained for intraoperative purposes.
[2022-05-02] MEDS: levofloxacin-dextrose 5 % 500 MG/100 ML PREMIX 100 MG IV (17:05)
--- NOTE | 2022-05-02 17:58 | PM.OP ---
Operative Report Date of procedure: May 02, 2022 Pre-op diagnosis: Refractory obstructing very symptomatic left ureteral stone Post-op diagnosis: Refractory obstructing very symptomatic left ureteral stone Procedure done: 1. Cystoscopy, left retrograde ureteropyelogram 2. Left ureteroscopy, laser, stent (7 Tanzanian by 30 cm double-pigtail without string) Implants: Left ureteral stent Specimens removed/disposition: Stone fragments Pathology: Stone fragments Surgeon: Shakira Anesthesia: General Estimated blood loss: Minimal Urine output: Not measured Complications: none Findings: 1. Bladder had multiple uric acid appearing crystals and small stones on the floor with injury at cystoscopy. Flushed and sent for analysis 2. There was a tight distal ureteral stricture which was dilated with the balloon dilator. Required high-pressure for opening 3. Stone was located in the expected position but just proximal to a very tight impassable ureteral narrowing. Thankfully the stone was accessible with ureteroscope and a small laser fiber to fragment under direct vision through that narrowed area without actually bridging it with the scope. Multiple attempts at passing the scope to check for additional stones proximal to that point was unsuccessful. 4. Ureteral stent left indwelling for healing of the distal ureter from balloon dilation as well as passive dilation of that area just below where the stone was located 5. High-pressure inspissated fluid above the stone located at the tight area near the pelvic vessel crossing. Brief History: Duke is a delightful 62-year-old white male who presented to the emergency department x2 with severe left renal colicky symptoms and was found to have an obstructing stone in the left mid ureter at just entering the sacral area. He also had additional stones in both kidneys. These were new since 2013. He had a terrible time controlling his pain and waited 6 days to try to see if he could pass a stone but he was unsuccessful and admitted through my office for refractory pain. No evidence of infection. His pain was aggressively managed in the hospital but he still had breakthrough pain frequently and failed to pass a stone and for that reason elected to undergo treatment. Endoscopy was selected. We discussed staged treatment of the stones if I could not easily get access to the stone. Procedure: After urgent evaluation examination and obtaining of informed consent he was taken to the operating suite on 05/02/2022 where general anesthesia was administered without difficulty after appropriate timeout was performed, SCDs confirmed to be functioning, preoperative antibiotics administered, beta-benny protocol confirmed. Prepped and draped in usual sterile fashion in dorsolithotomy position paying careful attention to avoiding pressure points. 21 Tanzanian cystoscope with 30 degree lens was introduced to the urethra meatus and advanced into the bladder under videoscopy. Immediately upon entering the bladder was obvious that he had a large amount of sand like size material and a few smaller stones consistent with uric acid with bright yellow color. These were flushed from the bladder and security systems sales representative sample sent for pathologic evaluation. Much of what was flushed from the bladder was so small that it did not contain within the mesh of the strainer An 8 Tanzanian cone-tip catheter was intubated into the left ureteral orifice for left retrograde ureteropyelogram: The distal ureter was grossly normal. There was a filling defect consistent with a stone in the expected position with some narrowing just distal to it. The ureter proximal to that was dilated. No other filling defects were identified. Flexible tip guidewire was then passed up the right ureter and the distal ureter was dilated with a 15 Tanzanian 4 cm balloon. Approximately 1.5 cm proximal to the ureteral orifice there was a persistently narrowed area that required 20 kinjal of pressure in order to dilate. The remainder of the distal ureter dilated very well. The balloon was removed and a second guidewire easily passed. The first wire was secured to the drapes as a safety wire and the second wire was utilized as a working wire. A 7 Tanzanian offset semirigid ureteroscope was then advanced over the guidewire easily up the left ureter and encountered the area where the stone was seen on retrograde and previous imaging. At that point there was a very distinct narrowing of the ureter and inflammatory changes. Attempts at bypassing this bypassing scope over the wire were unsuccessful with multiple angles etc. During this attempted manipulation the stone was moved slightly and there was a large amount of inspissated thickened urine consistent with longstanding obstruction which under pressure drained around the wire and through the cystoscope and around the cystoscope. Thankfully the stone could be continually visualized just proximal to this strictured area and with the guidewire removed a 200 ?m thulium superpulse laser fiber was utilized to under direct vision to fragment the stone into small pieces that were then flushed through this area and then further treated with resulting sand size fragments Attempts then again at passing this scope beyond this point over a wire were unsuccessful. A flexible ureteroscope was then attempted with the same result. Final inspection with the offset semirigid ureteroscope failed to show any obvious stone fragments proximal to this area but it could not be 100% ruled out but there was some additional fragments. It was decided that further attempts at passage of scope would potentially increase risk of problems with little benefit given that risk. At this point it was elected to place a stent for passive dilation and reevaluate postoperatively possibly with a CT scan or relook ureteroscopy to see if there is any residual fragments before removing the stent. Given the high-pressure dilation of the distal ureter as well as the narrowed area just below the location of the stone the stent may be required for a couple weeks potentially longer. All stone fragments were flushed from the bladder. Cystoscope was backloaded over the guidewire and a 7 Tanzanian by 30 cm double-pigtail stent was advanced over the working wire easily up the left ureter bypassing the areas of concern and curling in the area of the renal pelvis. Wire was removed. Stent was confirmed to be in appropriate position via fluoroscopy and cystoscopy. Confirmation cystoscopically of no residual fragments was made and then the bladder was drained.
--- NOTE | 2022-05-02 19:20 | PC.NURSE ---
Report to Maria Elena MULTANI at this time.
--- NOTE | 2022-05-02 20:23 | ANE.PACU2 ---
Inpatient post-anesthesia follow up: Airway intact: Yes Vital signs: Temperature 97.6 F Pulse Rate 44 Respiratory Rate 16 Blood Pressure 150/82 Pulse Oximetry 94 Oxygen Delivery Me thod Room Air Oxygen Flow Rate 6 Fraction of Inspir ed Oxygen Hydration adequate: Yes Nausea and vomiting: No Pain level: 1 Mental status: Baseline
[2022-05-02] MEDS: phenazopyridine 100 mg Tablet 200 MG PO (21:38)
[2022-05-03] VITALS (8 sets, daily range): BP systolic 123–169; BP diastolic 75–100; PULSE 48–59; RESP 16–18; TEMP 36.4–36.9; O2SAT 93–95
[2022-05-03] MEDS: HYDROcodone-acetaminophen 5-325 mg Tablet 1 TAB PO ×2 (01:38→09:24)
[2022-05-03] MEDS: D5-NS 0.45% + KCL 20 mEq 20 MEQ/1,000 ML BAG 150 MEQ IV ×2 (02:52→09:28)
[2022-05-03] MEDS: flecainide 100 mg Tablet 50 MG PO (09:16)
[2022-05-03] MEDS: atenolol 50 mg Tablet 25 MG PO (09:16)
[2022-05-03] MEDS: docusate sodium 100 mg Capsule PO (09:17)
[2022-05-03] MEDS: potassium chloride ER 20 mEq Tablet PO (09:17)
[2022-05-03] MEDS: tamsulosin 0.4 mg Capsule PO (09:17)
[2022-05-03] MEDS: losartan 50 mg Tablet PO (09:18)
[2022-05-03] MEDS: aspirin 81 mg EC Tablet PO (09:18)
--- NOTE | 2022-05-03 11:52 | PM.DCS ---
Discharge Providers Date of Admission: 05/01/22 13:18 Date of Discharge: May 03, 2022 Attending Provider at Admission: Lg Rosenberg MD Attending Provider at Discharge: Lg Rosenberg MD Primary Care Provider: Gareth Shaikh MD Diagnoses at Discharge Discharge Diagnosis (1) Left ureteral calculus: Status: Acute (2) Renal colic on left side: Status: Acute (3) Hypertension: Status: Acute Reason for Visit Reason for Visit: Calculus of ureter Hospital Course Hospital Course Duke was admitted from my office on 05/01/2022 for refractory left renal colic of 6-day duration secondary to a left mid ureteral stone identified during 2 ER visits prior to that clinic visit. He was having a terrible time controlling his pain. There is no evidence of infection but he was completely debilitated. Was admitted for further evaluation and treatment. His pain was well controlled temporarily with parenteral narcotics and Toradol. He was well hydrated with IV fluids but the stone failed to show significant progression and because of the persistence of severity of pain if not adequately medicated he ultimately decided to proceed with intervention. On the evening of 05/02/2022 he was taken to the operating room for cystoscopy, LEFT retrograde, ureteroscopy, laser and stent. He was found to have 2 ureteral narrowings 1 distally that was not involved in obstruction and 1 more proximally just below the stone which was responsible for the stone not having further migrated. The stone was able to be treated but the ureteroscope could not be fully advanced up the ureter due to this narrowing. It was felt though that there was likely to be no substantial fragments proximally but that was not definitive. He was observed overnight and discharged on postop day #1. At that point his pain was dramatically better as expected based on the degree of obstruction identified intraoperatively. Plan was to leave the stent in for 2 weeks, repeat a stone protocol CT scan to evaluate for any residual fragments and if none that would likely cause obstruction remove the stent that day in my office. We also converted him from potassium chloride to potassium citrate for assistance in alkalinization of the urine. At least a component of his stones appear to be uric acid in with potassium citrate can help reduce that risk by alkalinizing the urine but also reducing the risk of calcium oxalate stone formation on the basis of the citrate. He was instructed to call for concerns or questions. I reviewed with him typical stent symptoms which she should expect. I think any pain medicine he has at home now should control stent symptoms. He can pretty much do what he wants physical activity just may find that he has more discomfort with increased activity Physical Exam Narrative: Alert and oriented. No acute distress. Appears much more comfortable than preoperatively Neck good range of motion. Respiratory no labored respiration or wheezes. Tachypnea Extremities good range of motion. Psychiatric without changes in mentation or mood. Neurologic no focal defects. No confusion. Essentially back to baseline Discharge Data Studies Completed and Pending Completed Studies During Hospitalization Category Date Time Status XR [id number] [id number] Routine Exams 05/01/22 11:15 Completed XR [id number] [id number] Routine Exams 05/02/22 06:00 Completed Pending at discharge Category Date Time Status Stone Analysis Routine Lab 05/02/22 17:45 Received Pathology: Surgical [PTH] Routine Pth 05/02/22 17:49 Received Radiology Impressions KUB X-Ray 05/02/22 06:00 IMPRESSION: 1. Previously noted left-sided renal and ureteral stones not radiographically evident. 2. Renal stone identified. C-Arm Fluoroscopy 05/02/22 16:30 IMPRESSION: Images obtained for intraoperative purposes. Laboratory Results WBC 6.3 10^3/uL (4.0-10.0) 05/01/22 14:40 RBC 5.18 10^6/uL (4.1-5.3) 05/01/22 14:40 Hgb 15.3 g/dL (11.7-16.6) 05/01/22 14:40 Hct 47.2 % (42.0-52.0) 05/01/22 14:40 MCV 91.1 fl (80-94) 05/01/22 14:40 MCH 29.5 pg (28.0-34.0) 05/01/22 14:40 MCHC 32.4 g/dL (30.0-36.0) 05/01/22 14:40 RDW 13.2 % (12.1-15.1) 05/01/22 14:40 Plt Count 147 10^3/cmm (130-400) 05/01/22 14:40 MPV 11.3 fL (7.4-10.4) H 05/01/22 14:40 Neut % (Auto) 63.5 % 05/01/22 14:40 Lymph % (Auto) 25.4 % 05/01/22 14:40 [place] % (Auto) 9.4 % 05/01/22 14:40 Eos % (Auto) 1.1 % 05/01/22 14:40 Baso % (Auto) 0.3 % 05/01/22 14:40 Neut # (Auto) 3.96 10^3/uL (1.8-7.7) 05/01/22 14:40 Lymph # (Auto) 1.6 10^3/uL (0.8-4.8) 05/01/22 14:40 [place] # (Auto) 0.6 10^3/uL (0.2-0.9) 05/01/22 14:40 Eos # (Auto) 0.1 10^3/uL (0.0-0.8) 05/01/22 14:40 Baso # (Auto) 0.0 10^3/uL (0.0-0.1) 05/01/22 14:40 Nucleated RBC % (auto) 0 % 05/01/22 14:40 Nucleated RBCs # 0.0 /100WBC 05/01/22 14:40 Sodium 137 mmol/L (136-145) 05/02/22 05:50 Potassium 4.1 mmol/L (3.5-5.1) 05/02/22 05:50 Chloride 102 mmol/L (98-107) 05/02/22 05:50 Carbon Dioxide 25 mmol/L (22-29) 05/02/22 05:50 Anion Gap 14.1 (5-19) 05/02/22 05:50 BUN 24 mg/dL (8-23) H 05/02/22 05:50 Creatinine 1.6 mg/dL (0.7-1.2) H 05/02/22 05:50 GFR Calculation 44.0 mL/min (90-130) L 05/02/22 05:50 Glucose 112 mg/dL (65-115) 05/02/22 05:50 Calculated Osmolality 289 mOsm/kg (285-295) 05/02/22 05:50 Calcium 9.0 mg/dL (8.5-10.5) 05/02/22 05:50 Total Bilirubin 1.1 mg/dL (0.15-1.2) 05/01/22 14:40 AST 22 U/L (0-40) 05/01/22 14:40 ALT 33 U/L (0-41) 05/01/22 14:40 Alkaline Phosphatase 74 IU/L (40-130) 05/01/22 14:40 Total Protein 6.9 g/dL (6.6-8.7) 05/01/22 14:40 Albumin 3.8 g/dL (3.5-5.2) 05/01/22 14:40 Globulin 3.1 g/dL (1.3-4.6) 05/01/22 14:40 Stone Source Cancelled 05/02/22 17:49 Stone Weight Cancelled 05/02/22 17:49 Stone Nidus Cancelled 05/02/22 17:49 Procedures Performed 1. Cystoscopy with LEFT retrograde ureteropyelogram 2. LEFT ureteroscopy, laser lithotripsy, stent Vitals Last Vital Signs Temp 97.5 F L 05/03/22 07:18 Pulse 56 L 05/03/22 07:18 Resp 17 05/03/22 07:18 BP 169/100 05/03/22 09:18 Pulse Ox 94 05/03/22 07:18 Discharge Plan Discharge Patient Disposition: Home Condition: Stable Prescriptions: New potassium citrate 15 mEq tablet extended release 15 meq PO BID Qty: 60 12RF Continued atenolol 25 mg tablet 12.5 mg PO QPM 0RF flecainide 50 mg tablet 50 mg PO Q12H 0RF aspirin 81 mg tablet,delayed release (DR/EC) 81 mg PO QAM 0RF oxycodone-acetaminophen 10-325 mg tablet 1 - 2 tab PO Q8H PRN (Reason: Pain) 0RF docusate sodium [Colace] 100 mg capsule 200 mg PO BID 0RF tamsulosin 0.4 mg capsule 0.4 mg PO DAILY Qty: 14 0RF ondansetron 4 mg tablet,disintegrating 4 mg PO Q8H PRN (Reason: nausea and vomiting) Qty: 10 0RF losartan 100 mg tablet 100 mg PO QAM 0RF Discontinued potassium chloride [Klor-Con M20] 20 mEq tablet,ER particles/crystals 20 meq PO QAM 0RF Discharge Orders: Discharge Order (Routine); Ordered 05/03/22 Ordered By: Lg Rosenberg Referrals: Lg Rosenberg MD [Physician] - 2 weeks (CT scan stone protocol abdomen and pelvis prior to visit Possible cystoscopy stent removal) Discharge Diet: Advance as tolerated Discharge Activity: Increase activity as tolerated Patient Instructions: Opioid Safety Activity Restrictions/Additional Instructions: 1. Please stop the potassium chloride. New prescription was sent to [facility] for potassium CITRATE. You will take it twice a day. 2. We will plan on roughly 2 weeks from now reevaluating with a CT scan looking for any residual stones above that narrowed area. If there are none we will plan on removing the stent in the clinic. If there is a substantial fragment remaining above that we will plan on the looking after passive dilation hopefully opening the narrowed area adequately. 3. You can expect to see blood in your urine, frequency, urgency and flank pain with voiding with the stent. These are normal and not problematic most of the time. Discharge Attestations Time Spent in Discharge Care*: greater than 30 min Quality Metrics Clinical Quality Measures [ No reported AMI, CVA or VTE this stay] Coding Level of Care Code Acute Chg [facility] note Diagnoses Left ureteral calculus N20.1 Renal colic on left side N23 Hypertension I10
== END 2022-05-03 13:52 | disposition home or self-care (01) ==
LOC: MEDSURG 13:20
PROVIDERS: Admitting Provider Urology; PCP Family Medicine; Visit Provider Urology
PROC: 0TJB8ZZ Inspection of Bladder, Via Natural or Artificial Opening Endoscopic (ICD-10-PCS; CPT 52000; principal; 2022-05-02 16:30)
PROC: (CPT 74420; 2022-05-02 16:30)
PROC: (CPT 52356; 2022-05-02 16:30)
PROC: (CPT 50605; 2022-05-02 16:30)
DX: N20.1 Calculus of ureter (principal); I10 Essential (primary) hypertension; I48.91 Unspecified atrial fibrillation; Z85.46 Personal history of malignant neoplasm of prostate; K21.9 Gastro-esophageal reflux disease without esophagitis
CPT/HCPCS: 52356; 36415; 74018; 76000; 80048; 80053; 81003; 82365; 85025; 88300; 93005; C2625; G0378; J1100; J1170; J1885; J1956; J2405; J2704; J2710; J3010; J3490; J7030; Q9967

== ENCOUNTER 2022-05-18 13:43 | Outpatient (CLI) | payer BC, SELFPAY ==
--- NOTE | 2022-05-18 14:00 | CT_ITS ---
WS: [id number] CT ABDOMEN AND PELVIS NONCONTRAST HISTORY: LEFT URETERAL CALCULUS TECHNIQUE: Imaging performed through the abdomen and pelvis. Coronal and sagittal reformats are submi tted. All CT scans at [facility] use at least one of these dose optimization techniques: auto mated exposure control; mA and/or kV adjustment per patient size (includes targeted exams where dose is matched to clinical indication); or iterative reconstruction. DLP: 1234.51 mGy.cm COMPARISON: 04/29/2022 Lower thorax: Lung bases are clear. Visualized heart is normal. No hiatal hernia. Liver: Normal size liver with numerous granulomata. Gallbladder: Prior cholecystectomy. Pancreas: Mild fatty replacement of the pancreas. No mass or pancreatitis. Spleen: Normal size spleen with numerous granulomata. Adrenal glands: Normal. No mass. Right kidney: Nonobstructing 3 mm calcification lower pole. No ureteral obstruction. Left kidney: Double pigtail LEFT ureteral stent has been placed since the prior examination. No hydro nephrosis or residual hydroureter. Previously seen calcification in the upper pole of the renal pelvi s is no longer present. There is a single calcification measuring 5 mm adjacent to the proximal urete ral stent along at the level of the L3-4 disc space. This is a new ureteral calcification. The previo usly described calcification in the mid ureter on 04/29/2022 is no longer present at this location. No calcification noted in the urinary bladder or adjacent to the remaining stent. Aorta: Mild atherosclerosis abdominal aorta with no aneurysm. No free fluid, intraperitoneal air or significant lymphadenopathy. GI tract: Stomach is moderately distended with food products. No small bowel obstruction. There is a calcification or medicinal tablet in the cecum. The appendix is normal. A few scattered diverticula i n the distal colon with no acute diverticulitis. Abdominal wall: Small umbilical hernia contains fat only. Pelvis: Extensive prostate calcifications. Prostate encroaches into the urinary bladder. Osseous structures: Mild diffuse spondylitic changes within the lumbar spine. CT/CT kidney stone [id number] IMPRESSION: 1. Placement of a double pigtail LEFT ureteral stent since 04/29/2022. 2. Calcification described on 04/29/2022 in the mid LEFT ureter is no longer not ed at that location. 3. There is a new calcification adjacent to the proximal LEFT ureteral stent. I believe this calcification is likely from the previously described calcificat ion in the upper pole LEFT kidney which is not visualized in that location toda y. 4. Normal appendix. 5. Prostate gland hypertrophy. 6. Prior cholecystectomy.
== END 2022-05-18 13:44 | disposition home or self-care (01) ==
PROVIDERS: PCP Family Medicine; Visit Provider Urology
DX: N20.1 Calculus of ureter (principal); N40.0 Benign prostatic hyperplasia without lower urinary tract symptoms; Z90.49 Acquired absence of other specified parts of digestive tract
CPT/HCPCS: 74176; 81003

== ENCOUNTER 2022-05-22 08:43 | Day surgery (SDC) | payer BC, SELFPAY ==
[2022-05-19 16:58] VITALS: BMI 36.9
--- NOTE | 2022-05-22 | SCC_ITS ---
Procedure done: 1. Cystoscopy, LEFT retrograde ureteropyelogram 2. LEFT ureteroscopy, laser lithotripsy, ureteral stone/renal stone 3. LEFT ureteral stent exchange (4.5 x 30 cm double-pigtail with string) 38.2 seconds of fluoroscopic guidance, for a cumulative dose of 22.0 mGy, was provided to Dr. Rosenberg by the radiology department. C-arm images of the pelvis were saved for the patient's permanent record. [facility]
--- NOTE | 2022-05-22 05:51 | P.HPUD_ITS ---
Surgery/Procedure H&P Update DATE OF PROCEDURE: May 22, 2022 DATE H&P PERFORMED: 05/18/21 H&P UPDATE INFORMATION: I have reviewed H&P completed within last 30 days, I have examined patient prior to procedure, No changes to prior documentation and H&P is in [facility] EMR on date indicated CHANGES TO PREVIOUS DOCUMENTATION: He thought he might of passed something but did not catch a stone. PREOP DIAGNOSIS: Ureteral stone PLANNED PROCEDURE: Operation Date: 05/22/22 10:20 Proposed Procedures p Cystoscopy(Not Applicable) - Lg Rosenberg MD s Retrograde Pyelogram(Left) - MD ana Denise Ureteroscopy(Left) - Lg Rosenberg MD s Laser Lithotripsy(Left) - Lg Rosenberg MD s Ureteral Stent Placement/ [id number]/N13.5(Left) - Lg Rosenberg MD
--- NOTE | 2022-05-22 08:48 | SC_ITS ---
WS: [id number] INTRAOPERATIVE TECHNIQUE: 4 Spot fluoroscopic images for intraoperative purposes. FLUOROSCOPY TIME: 38.2 seconds CLINICAL INFORMATION: Left proximal ureteral stone COMPARISON: None. FINDINGS: LEFT ureteroscopy. Intraoperative images with LEFT double-J ureteral stent. SC/C-arm FL for Urology IMPRESSION: Images obtained for intraoperative purposes.
[2022-05-22] MEDS: sodium chloride 0.9% 1,000 ML 30 ML IV (09:29)
--- NOTE | 2022-05-22 09:55 | P.ANESASSM_ITS ---
Pre-Anesthetic Assessment Height/Weight: Height 1.85 m Weight 127.006 kg Preop Diagnosis: Left proximal ureteral stone Operation Date: 05/22/22 10:20 Proposed Procedures p Cystoscopy(Not Applicable) - Lg Rosenberg MD s Retrograde Pyelogram(Left) - MD ana Denise Ureteroscopy(Left) - MD ana Denise Laser Lithotripsy(Left) - Lg Rosenberg MD s Ureteral Stent Placement/ [id number]/N13.5(Left) - Lg Rosenberg MD Familial anesthetic complications: none Was Beta Radha taken within 24 hours: Yes Was Clonidine taken within 24 hours: N/A Last intake: Intake Last Liquid Date 05/21/22 Last Liquid Time 21:30 Last Solid Date 05/21/22 Last Solid Time 21:00 Social No alcohol and No tobacco Exam alert, oriented x 3, clear to auscultation bilaterally and regular rate & rhythm Airway Mallampati: Class IV Dentition: full Pulmonary None reported CV/HEM Atrial Fibrillation and Hypertension GI Gastroesophageal Reflux Disease Anesthetic Plan ASA status: 3 Anesthesia: General Risk of > 500 ml blood loss (7ml/kg in children): No Medications/Allergies Home Medications Medication Instructions Recorded Confirmed Last Taken Type aspirin 81 mg tablet,delayed 81 mg PO QAM tab 12/04/19 05/22/22 05/19/22 Histor y release atenolol 25 mg tablet 12.5 mg PO QPM tab 12/04/19 05/22/22 05/21/22 History flecainide 50 mg tablet 50 mg PO Q12H 12/04/19 05/22/22 05/21/22 History ondansetron 4 mg disintegrating 4 mg PO Q8H PRN #10 tab 04/28/22 05/22/22 05/21/22 Rx tablet oxycodone-acetaminophen 10 mg-325 1 - 2 tab PO Q8H PRN 05/01/22 05/22/22 05/21/22 History mg tablet losartan 100 mg tablet 100 mg PO QAM 05/02/22 05/22/22 05/21/22 History potassium citrate 15 mEq (1,620 15 meq PO BID #60 tab 05/03/22 05/22/22 05/21/22 Rx mg) tablet,extended release cyclobenzaprine 10 mg tablet 10 mg PO Q8H PRN #60 tab 05/04/22 05/22/22 05/21/22 Rx tamsulosin 0.4 mg capsule 0.4 mg PO DAILY #30 cap 05/04/22 05/22/22 05/22/22 Rx docusate sodium 100 mg capsule 200 mg PO BID PRN 05/18/22 05/22/22 05/21/22 History (Colace) phenazopyridine 95 mg tablet 95 mg PO TID PRN 05/18/22 05/22/22 05/21/22 History Allergies Allergy/AdvReac Type Severity Reaction Status Date / Time propafenone [From Rythmol] Allergy Severe ALGY-Difficulty Verified 05/22/22 09:15 Breathing Opioids - Morphine Analogues AdvReac Intermediate ADV-Weaknes Verified 05/22/22 09:15 s Current Medications Generic Name Dose Route Start Last Admin Trade Name Freq PRN Reason Stop Dose Admin Sodium Chloride 1,000 mls @ 30 mls/hr 05/22/22 09:30 05/22/22 09:29 Sodium Chloride 0.9% IV 05/23/22 09:29 30 mls/hr .Q24H JEREMIAS Administration PFSH Anesthesia Medical History A-fib Cough FH: prostate cancer GERD (gastroesophageal reflux disease) Hypertension Hypertension Shingles Testicular pain Urinary frequency Surgical History History of cholecystectomy History of thyroid surgery Hx laparoscopic cholecystectomy Family History Father , at age 74 Cancer prostate with metastasis Mother Multiple myeloma Social History Smoking and tobacco status: never smoked Alcohol intake: current Alcohol intake frequency: holidays/special occasions only Marital status: Current occupational status: employed History of recent travel: No Data Anesthesia : 05/22/22 09:22 Cardiac Studies: No Data to Display
--- NOTE | 2022-05-22 10:52 | P.OP_ITS ---
Operative Report Date of procedure: May 22, 2022 Pre-op diagnosis: Left proximal ureteral stone Post-op diagnosis: Left proximal ureteral stone Procedure done: 1. Cystoscopy, LEFT retrograde ureteropyelogram 2. LEFT ureteroscopy, laser lithotripsy, ureteral stone/renal stone 3. LEFT ureteral stent exchange (4.5 x 30 cm double-pigtail with string) Implants: Left ureteral stent Specimens removed/disposition: Stone fragments Surgeon: Shakira Urine output: Not measured Complications: None Brief History: Mr. Gaines is a very pleasant 60-year-old white male who recently was treated with endoscopic laser lithotripsy of left ureteral stone that failed to pass. Intraoperatively he was found to have 2 areas of very tight stricture that required high-pressure dilation. His stone was able to be treated with laser lithotripsy. He did have a history of uric acid stones and at that point the stone that was treated was not visualized on any plain x-ray but only on CT sc an. It was also noted on CT scan that he had a larger stone in the left kidney. On follow-up with anticipation of taking out the stent it was decided to do a follow-up CT scan because there may have been some fragments just proximal to one of the not bypassable strictures. It did show though that the treated stone was completely resolved. Unfortunately it also showed that the stone that had been in the left kidney was now in the left proximal ureter. We discussed her options and ultimately chose to approach that stone endoscopically today. We also discussed that there was a potential that the ureter was not well enough healed after the active and passive dilation and might require prolonged stent or even potentially more dilation, larger stent for further passive dilation Procedure: After routine preoperative evaluation examination and obtaining of informed consent he was taken to the operating suite on 05/22/2022 where general ane sthesia was administered without difficulty after appropriate timeout was performed, SCDs confirmed to be functioning, preoperative antibiotics administered, beta-benny protocol confirmed. Prepped and draped in usual sterile fashion in dorsolithotomy position paying careful attention to avoiding pressure points. 21 Macanese cystoscope with 30 degree lens was introduced into the urethra meatus and advanced into the bladder under videoscopy. The bladder was systematically examined. The stent was in the expected position. A flexible tip guidewire was easily advanced up the left ureter next to the stone curling in the area of the upper pole calyx. The stent was then grasped with grasping forceps and removed without difficulty. The proximal aspect was observed and easily uncurled. A second guidewire was passed. The first was a scare to the drapes as a safety wire and the second was used as a working wire. The flexible ureteroscope was then advanced over the working wire and advanced up the ureter without difficulty. The areas of previous dilation appeared to be healing well. The stone was encountered in the mid ureteral area lower than it had been seen on the CT scan. It was then fragmented completely with a 200 ?m thulium superpulse laser fiber into sand some of the fragments were flushed into the bladder at the end the procedure flushed out. The scope was then passed all the way into the kidney and all the calyces were inspected. There was an additional stone adherent to one of the lower pole calyces and this was completely fragmented with a same laser fiber into sand. Final inspection of the entire collecting system showed no residual stones. The ureter was carefully inspected as the scope was removed and no additional stone fragments were seen. The ureter was not completely healed but for the most part there. The ureteroscope was removed. Based on amount of work it was decided to leave a temporary stent and the cystoscope was backloaded over the working wire and a 4.5 Macanese by 30 cm double-pigtail stent with string attached distally was passed without difficulty over the guidewire through the cystoscope into appropriate position as confirmed via fluoroscopy and cystoscopy. The bladder was drained and some of the sand particles were collected and sent. The string was shortened. He tolerated procedure well without complications was awakened in the operating room and returned to cover him in stable condition. PLANS: 1. Anticipate discharge from outpatient surgery 2. He can remove the stent at home in about 2 days. Encouraged him to protect it until then. 3. He will need to collect a 24-hour urine sometime in the next few weeks and then follow-up about 6 weeks later for stone risk reduction strategies based on the 24-hour urine
[2022-05-22] MEDS: levofloxacin-dextrose 5 % 500 MG/100 ML PREMIX 100 MG IV (10:57)
[2022-05-22] MEDS: iohexol 300 mg/mL 50 mL Btl (OR ONLY) XX (11:30)
[2022-05-22 12:02] VITALS: BP 140/78; PULSE 77; RESP 16; TEMP 36.4; O2SAT 98
[2022-05-22 12:05] VITALS: BP 143/76; PULSE 78; RESP 16; O2SAT 96
[2022-05-22 12:10] VITALS: BP 140/78; PULSE 79; RESP 16; O2SAT 98
[2022-05-22 12:19] VITALS: BP 138/72; PULSE 77; RESP 16; TEMP 36.1; O2SAT 94
[2022-05-22 12:28] VITALS: BP 152/71; PULSE 75; RESP 18; TEMP 35.9; O2SAT 95
[2022-05-22 13:01] VITALS: BP 150/99; PULSE 78; RESP 18; O2SAT 96
--- NOTE | 2022-05-22 16:00 | ANE.PACU2 ---
Inpatient post-anesthesia follow up: Airway intact: Yes Vital signs: Temperature 96.6 F Pulse Rate 78 Respiratory Rate 18 Blood Pressure 150/99 Pulse Oximetry 96 Oxygen Delivery Me thod Room Air Oxygen Flow Rate 6 Fraction of Inspir ed Oxygen Hydration adequate: Yes Nausea and vomiting: No Pain level: 2 Mental status: Baseline
== END 2022-05-22 13:16 | disposition home or self-care (01) ==
PROVIDERS: PCP Family Medicine; Visit Provider Urology
PROC: 0TJB8ZZ Inspection of Bladder, Via Natural or Artificial Opening Endoscopic (ICD-10-PCS; CPT 52000; principal; 2022-05-22 10:20)
PROC: (CPT 74420; 2022-05-22 10:20)
PROC: 0TJ98ZZ Inspection of Ureter, Via Natural or Artificial Opening Endoscopic (ICD-10-PCS; CPT 52351; 2022-05-22 10:20)
PROC: (CPT 52356; 2022-05-22 10:20)
PROC: (CPT 50605; 2022-05-22 10:20)
DX: N20.1 Calculus of ureter (principal); I48.91 Unspecified atrial fibrillation; I10 Essential (primary) hypertension; K21.9 Gastro-esophageal reflux disease without esophagitis; Z79.82 Long term (current) use of aspirin
CPT/HCPCS: 52356; 36415; 76000; C2625; J1100; J1956; J2370; J2405; J2704; J2710; J3010; J3490; J7030

== ENCOUNTER 2022-11-13 15:35 | Outpatient (CLI) | payer BC, SELFPAY ==
--- NOTE | 2022-11-13 15:48 | XR_ITS ---
WS: [id number] CHEST 2 VIEWS HISTORY: cough/ r/o pneumonia COMPARISON: 10/23/2019 Lungs: Mild hyperexpansion. Mild interstitial thickening and subsegmental atelectasis in the lingula. No mass, pneumonia or nodule identified. Cardiac size: Normal. Mediastinum/Aorta: Mild atherosclerosis aorta. Bones: Normal. XR/XR chest 2V* [id number] IMPRESSION: Chronic emphysema with no pneumonia.
== END 2022-11-13 15:36 | disposition home or self-care (01) ==
PROVIDERS: PCP Family Medicine; Visit Provider Family Medicine
DX: J43.9 Emphysema, unspecified (principal)
CPT/HCPCS: 71046; J1040

== ENCOUNTER 2022-11-21 15:33 | Outpatient (CLI) | payer BC, SELFPAY | END 2022-11-21 15:34 | disposition home or self-care (01) | LOC: SPT 15:35 | PROVIDERS: PCP Family Medicine; Visit Provider Podiatrist Foot & Ankle Surgery | DX: Z46.89 Encounter for fitting and adjustment of other specified devices (principal); M72.2 Plantar fascial fibromatosis | CPT/HCPCS: 97760; L3030 ==

== ENCOUNTER 2022-11-22 12:41 | Outpatient (CLI) | payer BC, SELFPAY ==
[2022-11-22 13:35] LABS: Prostate Specific AG Urology 1.87 ng/mL (0-4)
== END 2022-11-22 12:42 | disposition home or self-care (01) ==
LOC: LAB 12:45
PROVIDERS: PCP Family Medicine; Visit Provider Urology
DX: Z12.5 Encounter for screening for malignant neoplasm of prostate (principal)
CPT/HCPCS: 84153

== ENCOUNTER 2022-11-23 08:52 | Outpatient (CLI) | payer BC, SELFPAY ==
--- NOTE | 2022-11-23 09:00 | XR_ITS ---
WS: [id number] KUB, AP view, 11/23/2022 Clinical Data: STONES Comparison: KUB, 05/02/2022 Findings: No abnormal intraabdominal masses are seen. There is no dilatated small bowel or evidence of obstruct ion. No renal calculi are seen. There are left upper quadrant calcifications which are in the spleen. Ther e is fecal material in the ascending and transverse colon. XR/XR KUB 40014 Impression: Negative KUB.
== END 2022-11-23 08:53 | disposition home or self-care (01) ==
LOC: RAD 08:54
PROVIDERS: PCP Family Medicine; Visit Provider Urology
DX: N20.1 Calculus of ureter (principal)
CPT/HCPCS: 74018; 81003

== ENCOUNTER 2022-12-28 19:48 | Emergency (ER) | payer BC, SELFPAY ==
[2022-12-28 20:24] VITALS: BP 136/83; PULSE 62; RESP 20; TEMP 36.7; O2SAT 95; BMI 35.6
[2022-12-28 20:37] VITALS: BP 136/83; PULSE 62; RESP 16; O2SAT 99
--- NOTE | 2022-12-28 20:49 | ED_ITS ---
HPI - Male Genitourinary General: Chief complaint: Urogenital-Male Stated complaint: can't pee Time Seen by Provider: 12/28/22 20:37 Source: patient Mode of arrival: ambulatory Limitations: no limitations History of Present Illness: Patient is a nice 62-year-old male presents to ED today with a complaint of difficulty urinating and penile and scrotal pain. He states he feels like he needs to void but can only go small amounts. Patient states he had a history of kidney and ureter stones and thinks his symptoms may be secondary to one of these. He does report feeling like his back was aching yesterday. He has noticed 2 episodes of hematuria. Denies flank pain. No fevers. No vomiting. Has not noticed any penile discharge. He has not noticed any scrotal or testicular redness or swelling. Pain seems to be worse when he tries to urinate. He has not had any abdominal or suprapubic pain. MD Complaint: testicle pain and other (hematuria, inability to urinate, painful urination) Onset (ago): day(s) Duration: constant Location: penis, right testicle and left testicle Severity: severe Quality: burning and sharp Relieving factors: none Exacerbating factors: urination Context: other (hx of stones) Associated symptoms: Reports dysuria and hematuria; Deny nausea, urinary incontinence or vomiting Review of Systems Const: Denies: fever(s), chills, body aches, fatigue or malaise Card: Denies: chest pain Resp: Denies: dyspnea GI: Denies: abdominal pain, nausea, vomiting or diarrhea : Reports: difficulty urinating, dysuria, difficulty starting urination, hematuria and testicular pain; Denies: flank pain, urinary frequency, urinary urgency, urinary hesitancy, oliguria, urinary incontinence, genital lesions, penile discharge, testicular mass or scrotal swelling Musc: Reports: back pain (reports mild back ache); Denies: neck pain, extremity pain, extremity swelling or joint pain Skin/Breast: Denies: rash Neuro: Denies: headache(s), numbness in extremities, weakness in extremities, sensory changes or dizziness PFS ED PFSH: Medical History A-fib Cough FH: prostate cancer GERD (gastroesophageal reflux disease) Hypertension Hypertension Shingles Testicular pain Urinary frequency Surgical History History of cholecystectomy History of thyroid surgery Hx laparoscopic cholecystectomy Family History Father , at age 74 Cancer prostate with metastasis Mother Multiple myeloma Social History Smoking and tobacco status: never smoked Alcohol intake: current Alcohol intake frequency: holidays/special occasions only Marital status: Current occupational status: employed History of recent travel: No Physical Exam Const: COMMON NORMALS: patient oriented x3, no limitations, alert and well nourished GENERAL APPEARANCE: cooperative and in distress (appears uncomfortable) NUTRITIONAL APPEARANCE: overweight ORIENTATION/CONSCIOUSNESS: Yes awake, Yes oriented to person, Yes oriented to place and Yes oriented to time HENMT: COMMON NORMALS: normocephalic and atraumatic HEAD & SCALP: normal to inspection, normocephalic and atraumatic Resp: COMMON NORMALS: normal respiratory effort and clear to auscultation bilaterally AUSCULTATION: clear to auscultation bilaterally Cardio: COMMON NORMALS: regular rate and regular rhythm RATE: regular rate RHYTHM: regular rhythm GI: COMMON NORMALS: Normal to inspection, nondistended, normoactive bowel sounds present, Soft to palpation, non-tender, No hepatosplenomegaly present and no masses INSPECTION: Yes normal to inspection AUSCULTATION: Yes normoactive bowel sounds PALPATION: Yes Soft to palpation, No Tenderness to palpation present (GI), No Guarding due to palpation present (GI), No Rigid due to palpation and Yes No hepatosplenomegaly present : COMMON NORMALS: Yes no CVA tenderness, Yes normal external exam, Yes Testes normal, Yes scrotum normal, Yes no scrotal swelling and Yes No hernias present BLADDER/KIDNEY EXAM: Yes no CVA tenderness PENIS: normal penis MEATUS: meatus normal SCROTUM: Yes testes descended bilaterally TESTES: Yes testicular lie normal Back/Pelvis: COMMON NORMALS: no CVA tenderness, thoracic and lumbar spine normal to inspection, no thoracic nor lumbar tenderness and thoraco-lumbar ROM normal Extremity: COMMON NORMALS: normal to inspection GENERAL: Yes normal exam except as noted Neuro: YUDY COMA SCALE: document GCS findings [place] coma scale eye opening: Spontaneous [place] coma scale verbal response: Orientated Yudy coma scale motor response: Obey commands [place] coma scale total score: 15 COMMON NORMALS: patient oriented x3 and gait normal SENSORIUM/ORIENTATION: Yes alert, Yes oriented to person, Yes oriented to place and Yes oriented to time Skin: COMMON NORMALS: no rashes or lesions noted GENERAL SKIN EXAM: no rashes or lesions noted Course Vital Signs: Vital signs: Vital Signs Temperature 98.0 F 12/28/22 20:24 Pulse Rate 84 12/28/22 22:21 Respiratory Rate 16 12/28/22 22:21 Blood Pressure 148/72 12/28/22 22:21 Pulse Oximetry 99 12/28/22 22:21 Oxygen Delivery Me thod 12/28/22 22:21 MDM - Male Medical Decision Making Patient's vital signs are normal. Blood work is overall fairly unremarkable. UA showing trace leukocyte esterase and 0-4 WBCs. Patient's bladder scanner showing a little over 50 cc. Patient has been able to void twice here although they have been very small volume voids. Patient CT scan is fairly unremarkable. He does have some thickening to his urinary bladder that the radiologist recommended correlation for clinical signs or symptoms of UTI. Will go ahead and treat for this at this time. Strict return to ED precautions given. Lab Data 12/28/22 21:00 12/28/22 21:00 Radiology Impressions Abdomen/Pelvis CT 12/28/22 20:51 IMPRESSION: 1. Old granulomatous disease 2. Nonobstructing stone right kidney 3. No ureteral calculi are identified. 4. Thickening of the urinary bladder and adjacent stranding. Please correlate for any clinical signs or symptoms of urinary tract infection. Laboratory Results WBC 10.8 10^3/uL (4.0-10.0) H 12/28/22 21:00 RBC 5.60 10^6/uL (4.1-5.3) H 12/28/22 21:00 Hgb 16.4 g/dL (11.7-16.6) 12/28/22 21:00 Hct 49.1 % (42.0-52.0) 12/28/22 21:00 MCV 87.7 fl (80-94) 12/28/22 21:00 MCH 29.3 pg (28.0-34.0) 12/28/22 21:00 MCHC 33.4 g/dL (30.0-36.0) 12/28/22 21:00 RDW 15.3 % (12.1-15.1) H 12/28/22 21:00 Plt Count 182 10^3/cmm (130-400) 12/28/22 21:00 MPV 11.5 fL (7.4-10.4) H 12/28/22 21:00 Neut % (Auto) 68.6 % 12/28/22 21:00 Lymph % (Auto) 21.9 % 12/28/22 21:00 [place] % (Auto) 8.0 % 12/28/22 21:00 Eos % (Auto) 0.8 % 12/28/22 21:00 Baso % (Auto) 0.3 % 12/28/22 21:00 Neut # (Auto) 7.41 10^3/uL (1.8-7.7) 12/28/22 21:00 Lymph # (Auto) 2.4 10^3/uL (0.8-4.8) 12/28/22 21:00 [place] # (Auto) 0.9 10^3/uL (0.2-0.9) 12/28/22 21:00 Eos # (Auto) 0.1 10^3/uL (0.0-0.8) 12/28/22 21:00 Baso # (Auto) 0.0 10^3/uL (0.0-0.1) 12/28/22 21:00 Nucleated RBC % (auto) 0 % 12/28/22 21:00 Nucleated RBCs # 0.0 /100WBC 12/28/22 21:00 Sodium 142 mmol/L (136-145) 12/28/22 21:00 Potassium 4.2 mmol/L (3.5-5.1) 12/28/22 21:00 Chloride 107 mmol/L (98-107) 12/28/22 21:00 Carbon Dioxide 22 mmol/L (22-29) 12/28/22 21:00 Anion Gap 17.2 (5-19) 12/28/22 21:00 BUN 29 mg/dL (8-23) H 12/28/22 21:00 Creatinine 1.2 mg/dL (0.7-1.2) 12/28/22 21:00 GFR Calculation 61.3 mL/min (90-130) L 12/28/22 21:00 Glucose 118 mg/dL (65-115) H 12/28/22 21:00 Calculated Osmolality 301 mOsm/kg (285-295) H 12/28/22 21:00 Calcium 9.6 mg/dL (8.5-10.5) 12/28/22 21:00 Total Bilirubin 0.4 mg/dL (0.15-1.2) 12/28/22 21:00 AST 20 U/L (0-40) 12/28/22 21:00 ALT 35 U/L (0-41) 12/28/22 21:00 Alkaline Phosphatase 81 U/L (40-130) 12/28/22 21:00 Total Protein 6.7 g/dL (6.6-8.7) 12/28/22 21:00 Albumin 4.5 g/dL (3.5-5.2) 12/28/22 21:00 Globulin 2.2 g/dL (1.3-4.6) 12/28/22 21:00 Urine Color Yellow (Yellow) 12/28/22 20:21 Urine Appearance Clear (CLEAR) 12/28/22 20:21 Urine pH 5 (5-7) 12/28/22 20:21 Ur Specific [place] 1.030 (1.005-1.030) 12/28/22 20:21 Urine Protein Trace (Negative) 12/28/22 20:21 Urine Glucose (UA) Norm (Normal) 12/28/22 20:21 Urine Ketones Negative (Negative) 12/28/22 20:21 Urine Blood Neg (Negative) 12/28/22 20:21 Urine Nitrate Negative (Negative) 12/28/22 20:21 Urine Bilirubin Neg (Negative) 12/28/22 20:21 Urine Urobilinogen Norm mg/dL (Negative) 12/28/22 20:21 Ur Leukocyte Esterase Trace (Negative) H 12/28/22 20:21 Urine RBC None /hpf (0-2) 12/28/22 20:21 Urine WBC 0-4 /hpf (0-5) H 12/28/22 20:21 Ur Squamous Epith Cells None /hpf (0-5) 12/28/22 20:21 Uric Acid Crystals 5-10 /hpf H 12/28/22 20:21 Amorphous Sediment Not Reportable 12/28/22 20:21 Urine Bacteria None /hpf (NONE) 12/28/22 20:21 Discharge Plan Discharge Patient Disposition: Home Clinical Impression: Acute cystitis Qualifiers: Hematuria presence: without hematuria Qualified Code(s): N30.00 - Acute cystitis without hematuria Condition: Stable Prescriptions: New Bactrim DS 800-160 mg tablet 1 tab PO BID 7 Days Qty: 14 0RF Pyridium 100 mg tablet 100 mg PO Q8H Qty: 6 0RF No Action atenolol 25 mg tablet 12.5 mg PO QPM flecainide 50 mg tablet 50 mg PO Q12H aspirin 81 mg tablet,delayed release (DR/EC) 81 mg PO QAM phenazopyridine 95 mg tablet 95 mg PO TID PRN (Reason: urinary probems) bupivacaine (PF) 0.5 % (5 mg/mL) kit 5 mg perineural injection ONCE Qty: 1 0RF oxycodone-acetaminophen 10-325 mg tablet 1 - 2 tab PO Q8H PRN (Reason: Pain) docusate sodium [Colace] 100 mg capsule 200 mg PO BID PRN (Reason: Constipation) (DME) Custom Sole Supports See Rx Instructions .Route .MEDSUPPLY Qty: 1 0RF Rx Instructions: Shoe Size: 11.5 tamsulosin 0.4 mg capsule 0.4 mg PO DAILY Qty: 30 12RF cyclobenzaprine 10 mg tablet 10 mg PO Q8H PRN (Reason: muscle spasm) Qty: 60 1RF losartan 100 mg tablet See Rx Instructions .ROUTE .COMPLEX Qty: 30 11RF Dose Instruction: Take 1 tablet by mouth once daily Rx Instructions: Take 1 tablet by mouth once daily ondansetron 4 mg tablet,disintegrating 4 mg PO Q8H PRN (Reason: nausea and vomiting) Qty: 10 0RF potassium citrate 15 mEq tablet extended release 15 meq PO BID Qty: 60 12RF Discharge Orders: Discharge ED (Routine); Ordered 12/28/22 Ordered By: Hansa Bragg Referrals: Gareth Shaikh MD [Primary Care Provider] - Activity Restrictions/Additional Instructions: As we discussed you need to begin your antibiotics immediately. The Pyridium prescribed to you today will turn your urine orange/red in color. You need to return to the emergency department for inability to urinate, severe abdominal pain/pressure, flank pain, fevers greater than 100.4, repetitive episodes of vomiting, generally feeling ill, redness or swelling to your scrotum or penis, or any other concerns you may have. I hope you begin to feel better soon. Coding Level of Care Code ED Paraoptometric for Hitesh Fwd Exam Comprehensive
--- NOTE | 2022-12-28 20:51 | CTR_ITS ---
PROCEDURE INFORMATION: Exam: CT Abdomen And Pelvis Without Contrast Exam date and time: 12/28/2022 9:39 PM Age: 62 years old Clinical indication: Pain; Other: Flank and scrotal; Prior surgery; Surgery date: 6+ months; Surgery type: Gb, L ureteral stent; Additional info: Bladder/scrotal pain; Urine retention, hematuria; HX stones TECHNIQUE: Imaging protocol: Computed tomography of the abdomen and pelvis without contrast. Radiation optimization: All CT scans at this facility use at least one of these dose optimization techniques: automated exposure control; mA and/or kV adjustment per patient size (includes targeted exams where dose is matched to clinical indication); or iterative reconstruction. Other protocol: This patient has received 3 known CTs and 0 known cardiac nuclear medicine studies in the 12 months prior to the current study. COMPARISON: 1. CT kidney stone [id number] 05/18/2022 2:[address] kidney stone [id number] 04/28/2022 1:25 AM RADIATION DOSE METRICS: Total DLP (mGy-cm): 1100.33 FINDINGS: Limitations: The absence of intravenous contrast lessens the sensitivity of this study for solid organ abnormalities. Liver: The liver demonstrates punctate calcifications, consistent with remote granulomatous organism exposure. Gallbladder and bile ducts: Cholecystectomy. Pancreas: The pancreas is normal. Spleen: The spleen demonstrates punctate calcifications, consistent with remote granulomatous organism exposure. Adrenal glands: 12 mm benign adenoma right adrenal gland not significantly changed. The left adrenal gland is normal. Kidneys and ureters: 3 mm nonobstructing stone in the lower right renal calyx slightly larger than on 04/28/2022. The left kidney is normal. There is no evidence of hydronephrosis. There is no stone along the course of either ureter. Stomach and bowel: There is no evidence of colitis/diverticulitis. There is no evidence of intestinal obstruction. Appendix: A normal appendix is identified. Intraperitoneal space: There is no evidence of free intraperitoneal fluid. Vasculature: Unremarkable. No abdominal aortic aneurysm. Lymph nodes: Unremarkable. No enlarged lymph nodes. Urinary bladder: There is diffuse thickening of the urinary bladder and mild stranding in the fat adjacent to the urinary bladder. Some of this thickening may be due to muscular hypertrophy from chronic outlet obstruction, however this appears increased from previous studies. Please correlate for any clinical signs or symptoms of urinary tract infection. Nonspecific dependent higher density in the posterior left urinary bladder not significantly changed compared with the previous studies of uncertain significance. Reproductive: The prostate gland demonstrates nonspecific parenchymal calcifications. The prostate demonstrates moderate nonspecific enlargement. The seminal vesicles are normal. Bones/joints: The lumbar spine demonstrates moderate degenerative changes at multiple levels. Soft tissues: Unremarkable. CT/CT kidney stone [id number] IMPRESSION: 1. Old granulomatous disease 2. Nonobstructing stone right kidney 3. No ureteral calculi are identified. 4. Thickening of the urinary bladder and adjacent stranding. Please correlate for any clinical signs or symptoms of urinary tract infection.
[2022-12-28 21:18] LABS: Basophils % 0.3 %; Eosinophils # 0.1 10^3/uL (0.0-0.8); Eosinophils % 0.8 %; Hematocrit 49.1 % (42.0-52.0); Hemoglobin 16.4 g/dL (11.7-16.6); Lymphocytes # 2.4 10^3/uL (0.8-4.8); Lymphocytes % 21.9 %; Mean Corpuscular HGB Conc 33.4 g/dL (30.0-36.0); Mean Corpuscular Hemoglobin 29.3 pg (28.0-34.0); Mean Corpuscular Volume 87.7 fl (80-94); Mean Platelet Volume 11.5 fL (7.4-10.4); Monocytes # 0.9 10^3/uL (0.2-0.9); Neutrophils # 7.41 10^3/uL (1.8-7.7); Neutrophils % 68.6 %; Nucleated Red Blood Cells % 0 %; Platelet Count 182 10^3/cmm (130-400); Red Cell Distribution Width 15.3 % (12.1-15.1); White Blood Count 10.8 10^3/uL (4.0-10.0)
[2022-12-28 21:45] LABS: Alanine Aminotransferase 35 U/L (0-41); Albumin Level 4.5 g/dL (3.5-5.2); Alkaline Phosphatase 81 U/L (40-130); Anion Gap 17.2 (5-19); Aspartate Amino Transferase 20 U/L (0-40); Blood Urea Nitrogen 29 mg/dL (8-23); Calcium 9.6 mg/dL (8.5-10.5); Carbon Dioxide 22 mmol/L (22-29); Chloride 107 mmol/L (98-107); Globulin 2.2 g/dL (1.3-4.6); Glomerular Filtration Rate 61.3 mL/min (90-130); Glucose 118 mg/dL (65-115); Osmolality Calculated 301 mOsm/kg (285-295); Potassium 4.2 mmol/L (3.5-5.1); Sodium 142 mmol/L (136-145); Total Bilirubin 0.4 mg/dL (0.15-1.2); Total Protein 6.7 g/dL (6.6-8.7)
[2022-12-28 21:54] LABS: Add Urine Microscopic? YES; Bilirubin Urine Neg (Negative); Blood Urine Neg (Negative); Glucose Urine UA Norm (Normal); Ketones Urine Negative (Negative); Leukocyte Esterase Urine Trace (Negative); Nitrate Urine Negative (Negative); Protein Urine Trace (Negative); Urine Appearance Clear (CLEAR); Urine Color Yellow (Yellow); Urobilinogen Urine Norm (Negative); pH Urine 5 (5-7)
[2022-12-28 21:55] LABS: Add Urine Culture? No; WBC Urine 0-4 /hpf (0-5)
[2022-12-28 22:21] VITALS: BP 148/72; PULSE 84; RESP 16; O2SAT 99
[2022-12-28] MEDS: cefTRIAXone 1,000 MG in water for injection-sterile 2.1 ML 2.1 MG IM (22:48)
[2022-12-28 22:52] VITALS: PULSE 83; RESP 18; O2SAT 99
== END 2022-12-28 22:53 | disposition home or self-care (01) ==
PROVIDERS: Emergency Medicine; Emergency Provider Physician Assistant; PCP Family Medicine
DX: N30.00 Acute cystitis without hematuria (principal)
CPT/HCPCS: 36415; 51798; 74176; 80053; 81001; 85025; 87086; 96372; 99284; J0696

== ENCOUNTER 2023-12-05 13:42 | Outpatient (CLI) | payer BC, SELFPAY ==
--- NOTE | 2023-12-05 13:46 | CT_ITS ---
WS: [id number] CT ABDOMEN AND PELVIS NONCONTRAST HISTORY: L FLANK PAIN TECHNIQUE: Imaging performed through the abdomen and pelvis. Coronal and sagittal reformats are submi tted. All CT scans at [facility] use at least one of these dose optimization techniques: auto mated exposure control; mA and/or kV adjustment per patient size (includes targeted exams where dose is matched to clinical indication); or iterative reconstruction. DLP: 1069.23 mGy.cm COMPARISON: 12/28/2022 Lower thorax: Lung bases are clear. Visualized heart is normal. No hiatal hernia. Liver: Normal size liver with numerous granulomata. Diffuse hepatic steatosis. Gallbladder: Prior cholecystectomy. Pancreas: Normal size and attenuation. Normal pancreatic duct. No pancreatitis or mass. Spleen: Numerous calcifications throughout the spleen. Adrenal glands: Normal. No mass. Right kidney: Normal size kidney. Nonobstructing calcification in the lower pole. Left kidney: Mild enlargement of the LEFT kidney with perinephric stranding. Mild dilatation of the r enal pelvis and the ureter secondary to a 4 mm calcification in the mid to distal ureter. Aorta: Mild atherosclerosis abdominal aorta with no aneurysm. No free fluid, intraperitoneal air or significant lymphadenopathy. GI tract: No GI tract obstruction. Normal appendix. There are a few scattered diverticula towards the sigmoid colon. Abdominal wall: Small umbilical hernia contains fat only. Pelvis: Well-distended urinary bladder. There is several of bladder calcifications in the dependent p ortion of the urinary bladder. These calcifications have increased in number since 12/28/2022. Osseous structures: Bone islands bilateral hips. IMPRESSION: 1. Mild LEFT hydroureteronephrosis secondary to a 4 mm calcification in the mid to distal ureter. 2. Additional bladder calcifications of increased in size and number since 12/28/2022. 3. Nonobstructing calcification RIGHT renal pelvis. 4. Mild sigmoid diverticulosis without acute diverticulitis. 5. Prior granulomatous disease. 6. Prior cholecystectomy.
== END 2023-12-05 13:43 | disposition home or self-care (01) ==
LOC: RAD 13:43
PROVIDERS: PCP Family Medicine; Visit Provider Nurse Practitioner Family
DX: N13.30 Unspecified hydronephrosis (principal); N21.0 Calculus in bladder; N20.1 Calculus of ureter
CPT/HCPCS: 74176

== ENCOUNTER → 2024-05-06 09:03 | Outpatient (BNVA) | payer BC, OTHER, SELFPAY | PROVIDERS: PCP Family Medicine; Visit Provider Family Medicine | DX: I48.91 Unspecified atrial fibrillation (principal); R53.1 Weakness; R19.7 Diarrhea, unspecified; E11.9 Type 2 diabetes mellitus without complications; I10 Essential (primary) hypertension | CPT/HCPCS: 80053; 82607; 83690; 83735; 83880; 84443; 85025 ==

== ENCOUNTER 2024-09-19 07:02 | Outpatient (CLI) | payer OTHER, SELFPAY ==
[2024-09-19 08:17] LABS: Cortisol Random 0.89 ug/dL (2.47-19.5)
== END 2024-09-19 07:03 | disposition home or self-care (01) ==
PROVIDERS: PCP Family Medicine; Visit Provider Urology
DX: D35.01 Benign neoplasm of right adrenal gland (principal); N20.0 Calculus of kidney
CPT/HCPCS: 36415; 82533; 82565; 83835

== ENCOUNTER → 2025-08-18 08:14 | Outpatient (BNVA) | payer MEDICARE, OTHER, SELFPAY | PROVIDERS: PCP Family Medicine; Visit Provider Family Medicine | DX: I48.91 Unspecified atrial fibrillation (principal); E66.9 Obesity, unspecified; E04.1 Nontoxic single thyroid nodule; E78.5 Hyperlipidemia, unspecified; R35.0 Frequency of micturition | CPT/HCPCS: 80053; 80061; 84153; 84443; 85025 ==

== ENCOUNTER → 2025-08-19 07:43 | Outpatient (BNVA) | payer MEDICARE, OTHER, SELFPAY | PROVIDERS: PCP Family Medicine; Visit Provider Family Medicine | DX: R73.9 Hyperglycemia, unspecified (principal) | CPT/HCPCS: 83036 ==